=== PATIENT | male | born 1940 | race Caucasian/White ===

== ENCOUNTER 2018-03-31 19:29 | Emergency (ER) | payer MEDICARE, OTHER ==
--- NOTE | 2018-03-31 22:50 | ER Document Report ---
ED General - General Chief Complaint: Head Injury Stated Complaint: FALL/HEAD INJURY Time Seen by Provider: 03/31/18 22:49 Mode of Arrival: Medic Information source: Emergency Med Personnel Notes: 78-year-old gentleman presented today for evaluation of a fall. According to patient he fell off approximately 4 steps while climbing blocker and polisher gold wheel stand. Patient fell backwards and the stand landed on the top of him. Patient reported posterior scalp hematoma without any loss of consciousness. Patient complains of right shoulder pain, right hip pain as well as neck pain. Pain is achy, constant, worse with movement and palpation, severity of symptoms is 6 out of 10. Patient denies any nausea, vomiting, double vision, focal upper or lower extremity weakness. Patient does not take any blood thinners at present time. TRAVEL OUTSIDE OF THE [place] IN LAST 30 DAYS: No - Related Data Allergies/Adverse Reactions: No Known Allergies Allergy (Unverified 03/31/18 19:35) Past Medical History - Social History Smoking Status: Unknown if Ever Smoked Family History: None Review of Systems - Review of Systems Notes: REVIEW OF SYSTEMS: CONSTITUTIONAL: -fevers, -chills EENT: -eye pain, -difficulty swallowing, -nasal congestion CARDIOVASCULAR: -chest pain, -syncope, + dizziness RESPIRATORY: -cough, -SOB GASTROINTESTINAL: -abdominal pain, -nausea, -vomiting, -diarrhea GENITOURINARY: -dysuria, -hematuria MUSCULOSKELETAL: -back pain, + neck pain, + shoulder pain, + hip pain SKIN: -rash or skin lesions. HEMATOLOGIC: -easy bruising or bleeding. LYMPHATIC: -swollen, enlarged glands. NEUROLOGICAL: -altered mental status or loss of consciousness, +headache, - neurologic symptoms PSYCHIATRIC: -anxiety, -depression. ALL OTHER SYSTEMS REVIEWED AND NEGATIVE. Physical Exam - Vital signs Vitals: Temp Pulse Resp BP Pulse Ox 98.1 F 74 18 159/88 H 96 03/31/18 19:39 03/31/18 19:39 03/31/18 19:39 03/31/18 19:39 03/31/18 19:39 - Notes Notes: Reviewed vital signs and nursing note as charted by RN. CONSTITUTIONAL: Alert and oriented and responds appropriately to questions HEAD: Normocephalic; posterior scalp hematoma without any obvious scalp deformity EYES: PERRL; Conjunctivae clear, sclerae non-icteric ENT: normal nose; no rhinorrhea; moist mucous membranes; pharynx without lesions noted NECK: Supple without meningismus; non-tender; no cervical lymphadenopathy, no masses CARD: Regular rate and rhythm; no murmurs, no clicks, no rubs, no gallops; symmetric distal pulses RESP: Normal chest excursion without splinting or tachypnea; breath sounds clear and equal bilaterally ABD/GI: Normal bowel sounds; non-distended; soft, BACK: The back appears normal and is non-tender to palpation EXT: Right shoulder examination without any obvious deformity, mild tenderness to palpation along anterior shoulder capsule, patient has normal range of motion of the shoulder, radial pulses are strong and palpable, motor strength is 5 out of 5 in the right hand Right hip examination without any obvious deformity, patient able to range his hip, no pain with logroll, DP and PT palpable, sensation is present in all the dermatomes of the lower extremity SKIN: Normal color for age and race; warm; dry; good turgor; capillary refill < 2 seconds; no acute lesions noted NEURO: .Cranial nerves 3-12 intact. Motor strength 5/5 bilaterally. Sensation intact to touch bilaterally. No pronator drift. Finger to nose intact bilaterally PSYCH: The patient's mood and manner are appropriate. Grooming and personal hygiene are appropriate. Course - Re-evaluation Re-evalutation: Patient presented today for evaluation of a fall Patient has scalp hematoma without any loss of consciousness Given his age will obtain CT scan to rule out acute intracranial injury or possible cervical spine fracture We will obtain x-rays of his pelvis as well as right shoulder Pain control with Shirley 04/01/18 01:23 CT scans as well as x-rays without any acute intracranial injuries or cervical spine fractures Patient does not have any hip injury or shoulder fracture Discussed results of imaging with patient and family, agree with disposition home today and close PCP follow-up Follow-up with primary care physician - Vital Signs Vital signs: Temp Pulse Resp BP Pulse Ox 98.1 F 74 15 140/66 H 98 03/31/18 19:39 03/31/18 19:39 03/31/18 23:01 03/31/18 23:01 03/31/18 23:01 Discharge - Discharge Clinical Impression: Fall (on) (from) other stairs and steps, initial encounter Scalp hematoma Qualifiers: Encounter type: initial encounter Qualified Code(s): S00.03XA - Contusion of scalp, initial encounter Closed head injury without loss of consciousness Qualifiers: Encounter type: initial encounter Qualified Code(s): S09.90XA - Unspecified injury of head, initial encounter Shoulder sprain Qualifiers: Encounter type: initial encounter Shoulder sprain type: rotator cuff capsule Condition: Stable Additional Instructions: CT scans did not reveal any evidence of brain injury or neck fractures Your x-rays did not reveal any evidence of fracture of his shoulder or hip Please continue to take pain medication such as Tylenol or ibuprofen to help your symptoms Please follow-up with your primary care physician Please come back if he develops worsening headache, dizziness, weakness in your arms or legs, nausea or vomiting Referrals: DIMA VACA MD [Primary Care Provider] - Follow up as needed
[2018-03-31] MEDS ORDERED: HYDROCODONE/ACETAMINOPHEN 5-325 MG TABLET PO ONE (23:19)
--- NOTE | 2018-04-01 01:04 | RADIOLOGY REPORT (SQ) ---
EXAM DESCRIPTION: CT HEAD WITHOUT; CT CERVICAL SPINE WITHOUT COMPLETED DATE/TIME: 04/01/2018 12:12 am REASON FOR STUDY: fell off ladder COMPARISON: None. TECHNIQUE: Axial images acquired through the brain and cervical spine without intravenous contrast. Images reviewed with brain, subdural, lung, soft tissue and bone windows. Reconstructed coronal and sagittal MPR images reviewed. Images stored on PACS. All CT scanners at this facility use dose modulation, iterative reconstruction, and/or weight based d osing when appropriate to reduce radiation dose to as low as reasonably achievable (ALARA). [facility]: Dose Right [facility]: CareDose [facility]: Dose Right [facility]: Teradose 4D [facility]: [employer] RADIATION DOSE: CT Rad equipment meets quality standard of care and radiation dose reduction techniq ues were employed. CTDIvol: 53.2 mGy. DLP: 1044 mGy-cm.; CT Rad equipment meets quality standard of c are and radiation dose reduction techniques were employed. CTDIvol: 17.4 mGy. DLP: 373 mGy-cm. mGy. LIMITATIONS: None. FINDINGS: Brain Mild atrophy and small vessel disease. No hemorrhage or mass or shift. Mild posterior right scalp s oft tissue swelling. No fracture. Cervical spine No fracture or bone lesion. Multilevel spondylosis. Minimal anterolisthesis at C2-3, presumably deg enerative. Lung apices clear. IMPRESSION: 1. No acute intracranial abnormality. 2. Cervical spondylosis. TECHNICAL DOCUMENTATION: JOB ID: [id number] Quality ID # [id number]: Final reports with documentation of one or more dose reduction techniques (e.g., Au tomated exposure control, adjustment of the mA and/or kV according to patient size, use of iterative reconstruction technique) 2010 [employer]- All Rights Reserved Reading location - IP/workstation name: [email or web address]
--- NOTE | 2018-04-01 01:04 | RADIOLOGY REPORT (SQ) ---
EXAM DESCRIPTION: CT HEAD WITHOUT; CT CERVICAL SPINE WITHOUT COMPLETED DATE/TIME: 04/01/2018 12:12 am REASON FOR STUDY: fell off ladder COMPARISON: None. TECHNIQUE: Axial images acquired through the brain and cervical spine without intravenous contrast. Images reviewed with brain, subdural, lung, soft tissue and bone windows. Reconstructed coronal and sagittal MPR images reviewed. Images stored on PACS. All CT scanners at this facility use dose modulation, iterative reconstruction, and/or weight based d osing when appropriate to reduce radiation dose to as low as reasonably achievable (ALARA). [facility]: Dose Right [facility]: CareDose [facility]: Dose Right [facility]: Teradose 4D [facility]: [employer] RADIATION DOSE: CT Rad equipment meets quality standard of care and radiation dose reduction techniq ues were employed. CTDIvol: 53.2 mGy. DLP: 1044 mGy-cm.; CT Rad equipment meets quality standard of c are and radiation dose reduction techniques were employed. CTDIvol: 17.4 mGy. DLP: 373 mGy-cm. mGy. LIMITATIONS: None. FINDINGS: Brain Mild atrophy and small vessel disease. No hemorrhage or mass or shift. Mild posterior right scalp s oft tissue swelling. No fracture. Cervical spine No fracture or bone lesion. Multilevel spondylosis. Minimal anterolisthesis at C2-3, presumably deg enerative. Lung apices clear. IMPRESSION: 1. No acute intracranial abnormality. 2. Cervical spondylosis. TECHNICAL DOCUMENTATION: JOB ID: [id number] Quality ID # [id number]: Final reports with documentation of one or more dose reduction techniques (e.g., Au tomated exposure control, adjustment of the mA and/or kV according to patient size, use of iterative reconstruction technique) 2010 [employer]- All Rights Reserved Reading location - IP/workstation name: [email or web address] DEVELOPMENT [email or web address]
--- NOTE | 2018-04-01 01:19 | RADIOLOGY REPORT (SQ) ---
EXAM DESCRIPTION: XR PELVIS 1-2 VIEWS. CLINICAL HISTORY: 78 years, Male, pain COMPARISON: None. NUMBER OF VIEWS: One TECHNIQUE: Single frontal view of the pelvis. LIMITATIONS: None. FINDINGS: Degenerative changes of the lower lumbar spine and bilateral hips with mild femoral acetabular joint space narrowing, subchondral sclerosis and osteophyte formation. No fracture or dislocation. Pelvic phleboliths noted. Vascular calcifications present throughout the soft tissues. IMPRESSION: Degenerative change without acute radiographic abnormality. 2011 [employer]- All Rights Reserved
--- NOTE | 2018-04-01 01:20 | RADIOLOGY REPORT (SQ) ---
EXAM DESCRIPTION: XR SHOULDER 2 OR MORE VIEWS CLINICAL HISTORY: 78 years, Male, pain COMPARISON: None. NUMBER OF VIEWS: Three TECHNIQUE: Three views of the RIGHT shoulder were obtained in AP internal, external and transscapular projection. LIMITATIONS: None. FINDINGS: No fracture or dislocation. Narrowing of the subacromial joint space, finding which can be seen with chronic rotator cuff injury. Degenerative change of the acromioclavicular and glenohumeral joint. The soft tissues appear to be within normal limits. IMPRESSION: Degenerative change without acute radiographic abnormality. 2011 [employer]- All Rights Reserved
[2018-04-01 02:10] VITALS: BP 155/75
== END 2018-04-01 01:30 | disposition home or self-care (01) ==
LOC: ER 19:29
DX: S43.429A Sprain of unspecified rotator cuff capsule, initial encounter (principal); S00.03XA Contusion of scalp, initial encounter; M25.511 Pain in right shoulder; M54.2 Cervicalgia; M25.551 Pain in right hip; W11.XXXA Fall on and from ladder, initial encounter; Y93.39 Activity, other involving climbing, rappelling and jumping off; R42 Dizziness and giddiness; R51 Headache
CPT/HCPCS: 99284; 72170; 73030; 70450; 72125; A9270

== ENCOUNTER → 2018-05-13 | Outpatient (CLI) | payer MEDICARE, OTHER ==
--- NOTE | 2018-05-13 13:34 | RADIOLOGY REPORT (SQ) ---
EXAM DESCRIPTION: NM WHOLE BODY BONE SCAN COMPLETED DATE/TIME: 05/13/2018 12:41 pm REASON FOR STUDY: PROSTATE CA (C61 C61 MALIGNANT NEOPLASM OF PROSTATE COMPARISON: CT abdomen pelvis 05/13/2018 RADIONUCLIDE AND DOSE: 22 millicuries Tc99m HDP. The route of agent administration: Intravenous. ADDITIONAL DRUGS AND DOSES: None. TECHNIQUE: Routine delayed images at 3 hours post radionuclide injection acquired of the bony skelet on including anterior and posterior whole-body projections and additional focused images as needed. LIMITATIONS: None. FINDINGS: Increased uptake along the right lateral 7th and 8th ribs, correlates with healing rib fra ctures on CT chest 05/13/2018. Increased uptake at the right and left 1st carpometacarpal joint, mid feet, and shoulders in characte ristic locations for osteoarthritis. Post bilateral total knee replacement IMPRESSION: No bone scan evidence of metastatic disease given history of prostate cancer COMMENT: Quality measure 147: Current bone scan is compared with any available plain radiographs, p rior bone scans, and CT/MRI. TECHNICAL DOCUMENTATION: JOB ID: [id number] [employer]- All Rights Reserved Reading location - IP/workstation name: [email or web address]
--- NOTE | 2018-05-13 17:28 | RADIOLOGY REPORT (SQ) ---
EXAM DESCRIPTION: CT ABD/PELVIS WITH IV ONLY COMPLETED DATE/TIME: 05/13/2018 9:48 am REASON FOR STUDY: PROSTATE CA (C61) C61 MALIGNANT NEOPLASM OF PROSTATE COMPARISON: None. TECHNIQUE: CT scan of the abdomen and pelvis performed using helical scanning technique with dynamic intravenous contrast injection. No oral contrast. Images reviewed with lung, soft tissue, and bone windows. Reconstructed coronal and sagittal MPR images reviewed. Delayed images for evaluation of the urinary system also acquired. All images stored on PACS. All CT scanners at this facility use dose modulation, iterative reconstruction, and/or weight based d osing when appropriate to reduce radiation dose to as low as reasonably achievable (ALARA). [facility]: Dose Right [facility]: CareDose [facility]: Dose Right [facility]: Teradose 4D [facility]: [employer] OPS CONTRAST TYPE AND DOSE: contrast/concentration: Isovue 370.00 mg/ml; Total Contrast Delivered: 78.0 ml; Total Saline Delivered: 67.0 ml RENAL FUNCTION: Creatinine 1.2 RADIATION DOSE: CT Rad equipment meets quality standard of care and radiation dose reduction techniq ues were employed. CTDIvol: 7.1 - 8.0 mGy. DLP: 792 mGy-cm.. LIMITATIONS: None. FINDINGS: LOWER CHEST: Obstructive lung disease at the bases, heavily calcified mitral annulus. No pericardial effusion. No cardiomegaly. LIVER: Normal size. No masses. No dilated ducts. SPLEEN: Normal size. No focal lesions. PANCREAS: No masses. No significant calcifications. No adjacent inflammation or peripancreatic fluid collections. Pancreatic duct not dilated. GALLBLADDER: No identified stones by CT criteria. No inflammatory changes to suggest cholecystitis. ADRENAL GLANDS: No significant masses or asymmetry. RIGHT KIDNEY AND URETER: No solid masses. 3 cm right upper pole renal cortical cyst. No significant calcifications. No hydronephrosis or hydroureter. LEFT KIDNEY AND URETER: No solid masses. No significant calcifications. No hydronephrosis or hydr oureter. AORTA AND VESSELS: No aneurysm. No abdominal aortic dissection. Greater than 50% narrowing of the pr oximal celiac artery, SMA, and bilateral renal arteries. RETROPERITONEUM: No retroperitoneal adenopathy, hemorrhage or masses. BOWEL AND PERITONEAL CAVITY: No CT evidence of bowel obstruction. No free intraperitoneal air or flu id. Few colonic diverticuli without CT signs of acute diverticulitis APPENDIX: Normal. PELVIS: Normal size prostate with decreased contrast enhancement along the rightward half, suspect ri ght-sided prostate tumor. No pelvic adenopathy. Bladder, rectum unremarkable. ABDOMINAL WALL: No masses. No hernias. BONES: No sclerotic bony metastatic lesions. Diffuse multilevel degenerative disc changes lumbar spi ne OTHER: No other significant finding. IMPRESSION: No CT evidence of metastatic disease over the abdomen or pelvis given history of prostat e cancer. TECHNICAL DOCUMENTATION: JOB ID: [id number] Quality ID # [id number]: Final reports with documentation of one or more dose reduction techniques (e.g., Au tomated exposure control, adjustment of the mA and/or kV according to patient size, use of iterative reconstruction technique) 2010 [employer]- All Rights Reserved Reading location - IP/workstation name: [email or web address]
== END ==
LOC: RAD 08:11
PROVIDERS: ATTEND Urology
DX: C61 Malignant neoplasm of prostate (principal)
CPT/HCPCS: 82565; 78306; 74177; A9561; Q9969

== ENCOUNTER 2018-10-13 09:32 | Inpatient (IN) | payer MEDICARE, OTHER ==
[2018-10-13] MEDS ORDERED: RINGERS SOLUTION,LACTATED 1,000 ML IV ONE (10:01)
[2018-10-13] MEDS ORDERED: NORMAL SALINE 1000 ML 1,000 ML IV ONE (10:52)
[2018-10-13 11:22] LABS: VENOUS BLOOD BASE EXCESS 1.1 mmol/L; VENOUS BLOOD HCO3 26.7 mmol/L (20-32); VENOUS BLOOD PH 7.38 (7.30-7.42)
[2018-10-13 11:24] LABS: APPEARANCE,URINE CLEAR; BILIRUBIN,URINE NEGATIVE (NEGATIVE); COLOR,URINE STRAW; GLUCOSE, URINE >=500 mg/dL (NEGATIVE); KETONES,URINE NEGATIVE (NEGATIVE); LEUKOCYTE ESTERASE,URINE NEGATIVE (NEGATIVE); NITRITE,URINE NEGATIVE (NEGATIVE); PROTEIN,URINE NEGATIVE (NEGATIVE); URINE SPECIFIC GRAVITY 1.026; UROBILINOGEN,URINE NEGATIVE mg/dL (<2.0)
[2018-10-13 11:25] LABS: ABSOLUTE BASOPHILS # (AUTO) 0.1 10^3/uL (0.0-0.2); ABSOLUTE EOSINOPHILS # (AUTO) 0.3 10^3/uL (0.0-0.6); ABSOLUTE LYMPHOCYTES (AUTO) 1.2 10^3/uL (0.5-4.7); ABSOLUTE MONOCYTES (AUTO) 0.7 10^3/uL (0.1-1.4); BASOPHILS % (AUTO) 1.2 % (0-2); EOSINOPHILS % (AUTO) 4.3 % (0-6); HEMATOCRIT 35.3 % (37.9-51.0); LYMPHOCYTES % (AUTO) 18.9 % (13-45); MEAN CORPUSCULAR HEMOGLOBIN 33.4 pg (27.0-33.4); MEAN CORPUSCULAR VOLUME 98 fl (80-97); PLATELET COUNT 188 10^3/uL (150-450); RED CELL DISTRIBUTION WIDTH 14.1 % (11.5-14.0); SEGMENTED NEUTROPHILS % (AUTO) 64.6 % (42-78); TOTAL CELLS COUNTED % (AUTO) 100 %; WHITE BLOOD COUNT 6.3 10^3/uL (4.0-10.5)
[2018-10-13 11:35] LABS: ALANINE AMINOTRANSFERASE 21 U/L (21-72); ALBUMIN 4.5 g/dL (3.5-5.0); ALKALINE PHOSPHATASE 158 U/L (38-126); ANION GAP 15 (5-19); ASPARTATE AMINO TRANSFERASE 35 U/L (17-59); BILIRUBIN,DIRECT 0.4 mg/dL (0.0-0.4); BILIRUBIN,TOTAL 1.1 mg/dL (0.2-1.3); BLOOD UREA NITROGEN 39 mg/dL (7-20); CARBON DIOXIDE 27 mmol/L (22-30); CHLORIDE 87 mmol/L (98-107); POTASSIUM 5.8 mmol/L (3.6-5.0); SODIUM 128.6 mmol/L (137-145); TOTAL PROTEIN 8.1 g/dL (6.3-8.2)
[2018-10-13 11:47] LABS: GLUCOSE 762 mg/dL (75-110)
[2018-10-13] MEDS ORDERED: NORMAL SALINE 100 ML with INSULIN REGULAR, HUMAN 100 UNIT IV PRN ×2 (12:01)
--- NOTE | 2018-10-13 12:06 | ER Document Report ---
ED Blood Sugar Problem - General Chief Complaint: High Blood Sugar Stated Complaint: ABNORMAL LABS Time Seen by Provider: 10/13/18 10:00 TRAVEL OUTSIDE OF THE [place] IN LAST 30 DAYS: No - HPI Notes: Patient is a 78-year-old male that presents to the emergency department for chief complaint of hyperglycemia. Patient states that he has likely been forgetting his insulin for the last few days. He states he usually takes it once a day in the morning. He is not sure why he is forgetting it but states since receiving his last chemo injection 1 week ago he has felt forgetful. He denies any headache, vision changes, numbness or weakness. He does report intermittent nausea with no vomiting. He denies any chest pain and shortness of breath. He denies history of DKA in the past. Past Medical History: Diabetes, prostate cancer Past Surgical History: Viewed in chart Social History: His alcohol and tobacco use Family History: Reviewed and noncontributory for presenting illness Allergies: Reviewed, see documented allergy list. REVIEW OF SYSTEMS: CONSTITUTIONAL : Forgetfulness No fever No chills No diaphoresis No recent illness EENT: No vision changes No congestion No sore throat CARDIOVASCULAR: No chest pain No palpitations RESPIRATORY: No shortness of breath No cough No difficulty breathing GASTROINTESTINAL: No abdominal pain nausea No vomiting No diarrhea GENITOURINARY: No dysuria No hematuria No difficulty urinating MUSCULOSKELETAL: No back pain No leg pain No arm pain SKIN: No rashes No lesions LYMPHATIC: No swollen, enlarged glands. NEUROLOGICAL: No lightheadedness No headache No weakness No paresthesias PSYCHIATRIC: No anxiety No depression PHYSICAL EXAMINATION: Vital signs reviewed, nursing noted reviewed. GENERAL: Well-appearing, well-nourished and in no acute distress. HEAD: Atraumatic, normocephalic. EYES: Eyes appear normal, extraocular movements intact, sclera anicteric, conjunctiva are normal. ENT: nares patent, oropharynx clear without exudates. Dry mucous membranes. NECK: Normal range of motion, supple without lymphadenopathy LUNGS: Breath sounds clear to auscultation bilaterally and equal. No wheezes rales or rhonchi. HEART: Regular rate and rhythm without murmurs ABDOMEN: Soft, nontender, normoactive bowel sounds. No rebound, guarding, or rigidity. No masses appreciated. EXTREMITIES: Nontender, good range of motion, no pitting or edema. NEUROLOGICAL: No focal neurological deficits. Moves all extremities spontaneously Motor and sensory grossly intact on exam. PSYCH: Normal mood, normal affect. SKIN: Warm, Dry, normal turgor, no rashes or lesions noted on exposed skin - Related Data Allergies/Adverse Reactions: No Known Allergies Allergy (Verified 10/13/18 09:34) Past Medical History - Social History Smoking Status: Never Smoker Chew tobacco use (# tins/day): No Frequency of alcohol use: Occasional Drug Abuse: None Family History: None Patient has suicidal ideation: No Patient has homicidal ideation: No Renal/ Medical History: Denies: Hx Peritoneal Dialysis Physical Exam - Vital signs Vitals: Temp Pulse Resp BP Pulse Ox 97.6 F 69 16 119/58 L 100 10/13/18 09:39 10/13/18 09:39 10/13/18 09:39 10/13/18 09:39 10/13/18 09:39 Course - Re-evaluation Re-evalutation: 10/13/18 12:04 Vitals reviewed. Nursing notes reviewed. Patient is hyperglycemic with a glucose of 762. He was started on IV hydration. His potassium level is elevated which will likely improve with fluids. Patient is also hyponatremic secondary to his hyperglycemia. He will be admitted to the ICU for DKA. He was started on insulin infusion in the emergency room. Case discussed with Dr. Vaca who is accepted admission. Patient in agreement with this plan and stable at time of admission. Laboratory 10/13/18 10/13/18 10/13/18 10:15 10:38 10:38 WBC 6.3 RBC 3.60 L Hgb 12.0 L Hct 35.3 L MCV 98 H MCH 33.4 MCHC 34.0 RDW 14.1 H Plt Count 188 Seg Neutrophils % 64.6 Lymphocytes % 18.9 Monocytes % 11.0 Eosinophils % 4.3 Basophils % 1.2 Absolute Neutrophils 4.0 Absolute Lymphocytes 1.2 Absolute Monocytes 0.7 Absolute Eosinophils 0.3 Absolute Basophils 0.1 VBG pH VBG pCO2 VBG HCO3 VBG Base Excess Sodium 128.6 L Potassium 5.8 H Chloride 87 L Carbon Dioxide 27 Anion Gap 15 BUN 39 H Creatinine 1.28 H Est GFR ( Amer) > 60 Est GFR (Non-Af Amer) 55 L Glucose 762 H* Calcium 10.0 Total Bilirubin 1.1 Direct Bilirubin 0.4 Neonat Total Bilirubin Not Reportable Neonat Direct Bilirubin Not Reportable Neonat Indirect Bili Not Reportable AST 35 ALT 21 Alkaline Phosphatase 158 H Total Protein 8.1 Albumin 4.5 Urine Color STRAW Urine Appearance CLEAR Urine pH 5.0 Ur Specific [place] 1.026 Urine Protein NEGATIVE Urine Glucose (UA) >=500 H Urine Ketones NEGATIVE Urine Blood NEGATIVE Urine Nitrite NEGATIVE Urine Bilirubin NEGATIVE Urine Urobilinogen NEGATIVE Ur Leukocyte Esterase NEGATIVE Urine WBC (Auto) 0 Squamous Epi Cells Auto <1 Urine Mucus (Auto) RARE Urine Ascorbic Acid NEGATIVE 10/13/18 10:38 WBC RBC Hgb Hct MCV MCH MCHC RDW Plt Count Seg Neutrophils % Lymphocytes % Monocytes % Eosinophils % Basophils % Absolute Neutrophils Absolute Lymphocytes Absolute Monocytes Absolute Eosinophils Absolute Basophils VBG pH 7.38 VBG pCO2 46.0 VBG HCO3 26.7 VBG Base Excess 1.1 Sodium Potassium Chloride Carbon Dioxide Anion Gap BUN Creatinine Est GFR ( Amer) Est GFR (Non-Af Amer) Glucose Calcium Total Bilirubin Direct Bilirubin Neonat Total Bilirubin Neonat Direct Bilirubin Neonat Indirect Bili AST ALT Alkaline Phosphatase Total Protein Albumin Urine Color Urine Appearance Urine pH Ur Specific [place] Urine Protein Urine Glucose (UA) Urine Ketones Urine Blood Urine Nitrite Urine Bilirubin Urine Urobilinogen Ur Leukocyte Esterase Urine WBC (Auto) Squamous Epi Cells Auto Urine Mucus (Auto) Urine Ascorbic Acid - Vital Signs Vital signs: Temp Pulse Resp BP Pulse Ox 97.6 F 69 16 119/58 L 100 10/13/18 09:39 10/13/18 09:39 10/13/18 09:52 10/13/18 09:39 10/13/18 09:39 - Laboratory Result Diagrams: 10/13/18 10:38 10/13/18 10:38 Laboratory results interpreted by me: 10/13/18 10/13/18 10/13/18 10:15 10:38 10:38 RBC 3.60 L Hgb 12.0 L Hct 35.3 L MCV 98 H RDW 14.1 H Sodium 128.6 L Potassium 5.8 H Chloride 87 L BUN 39 H Creatinine 1.28 H Est GFR (Non-Af Amer) 55 L Glucose 762 H* Alkaline Phosphatase 158 H Urine Glucose (UA) >=500 H Critical Care Note - Critical Care Note Total time excluding time spent on procedures (mins): 35 Comments: Metabolic derangements, DKA, potential for hemodynamic decompensation Discharge - Discharge Clinical Impression: DKA (diabetic ketoacidoses) Qualifiers: Diabetes mellitus type: type 1 Diabetes mellitus complication detail: without coma Qualified Code(s): E10.10 - Type 1 diabetes mellitus with ketoacidosis without coma Condition: Stable Disposition: ADMITTED INPATIENT Admitting Provider: [facility] Admitted: ICU Referrals: DIMA VACA MD [Primary Care Provider] - Follow up as needed
[2018-10-13] MEDS ORDERED: INSULIN REG, HUMAN 100 UNIT/ML 3 ML VIAL (PYX) ONE (12:55)
[2018-10-13] MEDS ORDERED: DEXTROSE 40% GEL 15 GM TUBE PO PRN (14:59)
[2018-10-13] MEDS ORDERED: DEXTROSE 40% GEL 15 GM TUBE X 2 PO PRN (14:59)
[2018-10-13] MEDS ORDERED: INSULIN, REGULAR 100 UNIT/100 ML NORMAL SALINE IV PRN ×2 (14:59)
[2018-10-13] MEDS ORDERED: GLUCAGON,HUMAN RECOMB 1 MG INJ IM PRN (14:59)
[2018-10-13] MEDS ORDERED: DEXTROSE 50%-WATER SYRINGE 25 GM/50 ML DOSE IV PRN (14:59)
[2018-10-13] MEDS ORDERED: DEXTROSE 50%-WATER SYRINGE 12.5 GM/25 ML DOSE IV PRN (14:59)
[2018-10-13] MEDS ORDERED: DEXTROSE 5%-NORMAL SALINE 1,000 ML IV PRN (19:56)
--- NOTE | 2018-10-13 20:27 | PDOC H&P ---
History of Present Illness Admission Date/PCP: 10/13/18 12:32 DIMA NOLA Patient complains of: Elevated blood glucose History of Present Illness: TOÑO FUENTES is a 78 year old male patient known to my practice who's blood glucose was elevated at over 700 mg/dL and attempt to contact him was unsuccessful since 10/10/18. His spouse eventually called me this morning upon reviewing message on her telephone and reported that his accuchek machine was reading high. He was subsequently directed to the Ed for further evaluation and management. His initial evaluation in the Ed revealed blood glucose of 762 mg/ dL. He was stated on IV fluid and insulin infusion therapy. Patient reported noncompliance with his insulin administration at home due to forgetfulness in recent time, particularly since his last dose of chemotherapy. He denied any fever or chills. No nausea, vomiting or diarrhea. he denied any genitourinary symptoms to suggest ongoing infection. No headache or dizziness. His morbidities include hypertension Diabetes mellitus type 2, Hyperlipidemia, GERD , Microcytic anemia and recently diagnosed prostate cancer s/p radiation therapy and currently on Bicalutamide (Casodex). He was advised admission for further evaluation and management for diabetic ketoacidosis without coma. Past Medical History Cardiac Medical History: Reports: Hyperlipidema, Hypertension Pulmonary Medical History: Reports: None Endocrine Medical History: Reports: Diabetes Mellitus Type 2 Malignancy Medical History: Reports: Other - Prostate cancer GI Medical History: Reports: Gastroesophageal Reflux Disease Hematology: Reports: Anemia Past Surgical History Past Surgical History: Reports: Knee Replacement Social History Smoking Status: Former Smoker Number of Years Smokin Frequency of Alcohol Use: Rare Hx Recreational Drug Use: No Drugs: None - Advance Directive Resuscitation Status: Full Code Family History Family History: None Parental Family History Reviewed: Yes Children Family History Reviewed: Yes Sibling(s) Family History Reviewed.: Yes Medication/Allergy Home Medications: Amlodipine Besylate [Norvasc 5 mg Tablet] 5 mg PO DAILY 10/13/18 Aspirin [Ecotrin 81 mg EC Tablet] 81 mg PO DAILY 10/13/18 Atorvastatin Calcium [Lipitor 40 mg Tablet] 40 mg PO QHS 10/13/18 Bicalutamide [Casodex 50 Mg Tablet] 50 mg PO DAILY 10/13/18 Insulin Glargine,Hum.rec.anlog [Lantus Insulin Inj 300 Unit/3 ml Pen] 30 unit SUBCUT QHS 12/03/18 Ketoconazole [Nizoral 2% Shampoo 120 Ml Bottle] 1 applic TP ASDIR PRN 10/13/18 Lisinopril [Prinivil] 20 mg PO DAILY 10/13/18 Metoprolol Tartrate [Lopressor 25 mg Tablet] 25 mg PO Q12 10/13/18 [place]-3 Acid Ethyl Esters [Lovaza 1 gm Capsule] 1 gm PO DAILY 10/13/18 Prevnar 13 0.5 ml IM .RECEIVED 09/03/18 10/13/18 Sitagliptin Phos/Metformin HCl [Janumet Xr 50-1,000 mg Tablet] 1 each PO BID 01/26 Allergies/Adverse Reactions: No Known Allergies Allergy (Verified 10/13/18 09:34) Review of Systems Constitutional: ABSENT: chills, fever(s), headache(s), weight gain, weight loss Eyes: PRESENT: visual disturbances - corrected with glasses Ears: ABSENT: hearing changes Nose, Mouth, and Throat: ABSENT: as per HPI, headache(s), mouth pain, sore throat, vertigo, other Cardiovascular: ABSENT: chest pain, dyspnea on exertion, edema, orthropnea, palpitations Respiratory: ABSENT: cough, hemoptysis Gastrointestinal: ABSENT: abdominal pain, constipation, diarrhea, hematemesis, hematochezia, nausea, vomiting Genitourinary: ABSENT: dysuria, hematuria Musculoskeletal: ABSENT: joint swelling Integumentary: ABSENT: rash, wounds Neurological: PRESENT: memory loss. ABSENT: abnormal gait, abnormal speech, confusion, dizziness, focal weakness, syncope Psychiatric: ABSENT: anxiety, depression, homidical ideation, suicidal ideation Endocrine: ABSENT: cold intolerance, heat intolerance, polydipsia, polyuria Hematologic/Lymphatic: ABSENT: easy bleeding, easy bruising, lymphadenopathy Physical Exam Vital Signs: Temp Pulse Resp BP Pulse Ox 98.1 F 64 17 110/54 L 97 10/13/18 18:30 10/13/18 12:31 10/13/18 17:01 10/13/18 18:33 10/13/18 18:32 General appearance: PRESENT: no acute distress, well-developed, well-nourished Head exam: PRESENT: atraumatic, normocephalic Eye exam: PRESENT: conjunctiva pink, EOMI, PERRLA. ABSENT: scleral icterus Ear exam: PRESENT: normal external ear exam Mouth exam: PRESENT: moist - fairly Neck exam: PRESENT: full ROM. ABSENT: carotid bruit, JVD, lymphadenopathy, thyromegaly Respiratory exam: PRESENT: clear to auscultation adarsh Cardiovascular exam: PRESENT: RRR. ABSENT: diastolic murmur, rubs, systolic murmur Pulses: PRESENT: normal dorsalis pedis pul, +2 pedal pulses bilateral Vascular exam: PRESENT: normal capillary refill. ABSENT: pallor Rectal exam: PRESENT: deferred Extremities exam: ABSENT: pedal edema Musculoskeletal exam: PRESENT: ambulatory, normal inspection Neurological exam: PRESENT: alert, awake, oriented to person, oriented to place , oriented to time, oriented to situation, CN II-XII grossly intact. ABSENT: motor sensory deficit Psychiatric exam: PRESENT: appropriate affect, normal mood. ABSENT: homicidal ideation, suicidal ideation Skin exam: PRESENT: dry, intact, warm. ABSENT: cyanosis, rash Results Laboratory Results: I reviewed his lab results on [employer] and form significant aspect of my medical decision making. Assessment & Plan - Diagnosis (1) DKA (diabetic ketoacidoses) Qualifiers: Diabetes mellitus type: type 2 Diabetes mellitus complication detail: without coma Qualified Code(s): E11.10 - Type 2 diabetes mellitus with ketoacidosis without coma Is this a current diagnosis for this admission?: Yes Plan: Continue IV fluid support, IN Insulin infusion with dosage adjustment, and electrolyte replacement as indicated. (2) Diabetes mellitus type 2 in nonobese Is this a current diagnosis for this admission?: Yes Plan: Allow oral intake with diabetic diet level 3. Resume his home Lantus with sliding scale coverage as his hyperglycemia improves. (3) Hyperkalemia Is this a current diagnosis for this admission?: Yes Plan: Probably due to his hyperglycemic state. This may improve with treatment of her DKA status. (4) Hyponatremia Is this a current diagnosis for this admission?: Yes Plan: Probably due to his hyperglycemic and electrolyte derangement state. This may improve with treatment of her DKA status. (5) HTN (hypertension) Qualifiers: Hypertension type: essential hypertension Qualified Code(s): I10 - Essential (primary) hypertension Is this a current diagnosis for this admission?: Yes Plan: Continue on preadmission medication management. (6) HLD (hyperlipidemia) Qualifiers: Hyperlipidemia type: unspecified Qualified Code(s): E78.5 - Hyperlipidemia , unspecified Is this a current diagnosis for this admission?: Yes Plan: Continue on preadmission medication management. (7) GERD (gastroesophageal reflux disease) Qualifiers: Esophagitis presence: without esophagitis Qualified Code(s): K21.9 - Gastro -esophageal reflux disease without esophagitis Is this a current diagnosis for this admission?: Yes Plan: Continue on preadmission medication management. (8) Primary prostate cancer Is this a current diagnosis for this admission?: Yes Plan: Continue on preadmission medication management. - Time Time Spent: 50 to 70 Minutes Medications reviewed and adjusted accordingly: Yes Anticipated discharge: Home with Homehealth Within: Other - Inpatient Certification Based on my medical assessment, after consideration of the patient's comorbidities, presenting symptoms, or acuity I expect that the services needed warrant INPATIENT care.: Yes I certify that my determination is in accordance with my understanding of Medicare's requirements for reasonable and necessary INPATIENT services [42 CFR 412.3e].: Yes Medical Necessity: Need Close Monitoring Due to Risk of Patient Decompensation, Need For IV Fluids, Need For Continuous Telemetry Monitoring, Risk of Complication if Not Cared For in Hospital Post Hospital Care: D/C [employer] Intern Documentation - Plan Summary Plan Summary: See admitting attedning physician orders as outlined by above care plan. I discussed case with patient and spouse and they are in agreement with care plan.
[2018-10-13 21:06] LABS: ANION GAP 13 (5-19); BLOOD UREA NITROGEN 30 mg/dL (7-20); CALCIUM 9.6 mg/dL (8.4-10.2); CARBON DIOXIDE 24 mmol/L (22-30); CHLORIDE 101 mmol/L (98-107); GLUCOSE 130 mg/dL (75-110); SODIUM 137.8 mmol/L (137-145)
[2018-10-13] MEDS ORDERED: INSULIN GLARGINE,HUM.REC.ANLOG 300 UNIT/3 ML INSULN.PEN SUBCUT SCH (22:00)
[2018-10-13] MEDS: ATORVASTATIN CALCIUM 40 MG TABLET PO SCH (22:51)
[2018-10-13] MEDS: METOPROLOL TARTRATE 25 MG TABLET PO SCH (22:59)
[2018-10-14] MEDS: LANSOPRAZOLE 30 MG TAB.RAP.DR PO SCH (05:53)
[2018-10-14 07:08] LABS: ALANINE AMINOTRANSFERASE 21 U/L (21-72); ALBUMIN 3.3 g/dL (3.5-5.0); ALKALINE PHOSPHATASE 72 U/L (38-126); ANION GAP 12 (5-19); ASPARTATE AMINO TRANSFERASE 27 U/L (17-59); BILIRUBIN,DIRECT 0.2 mg/dL (0.0-0.4); BILIRUBIN,TOTAL 0.5 mg/dL (0.2-1.3); BLOOD UREA NITROGEN 25 mg/dL (7-20); CARBON DIOXIDE 23 mmol/L (22-30); CHLORIDE 104 mmol/L (98-107); CHOLESTEROL 156.35 mg/dL (0-200); GLUCOSE 113 mg/dL (75-110); SODIUM 138.6 mmol/L (137-145); TOTAL PROTEIN 6.4 g/dL (6.3-8.2); TRIGLYCERIDES 274 mg/dL (<150)
[2018-10-14 07:18] LABS: DIRECT LDL 86 mg/dL (<100)
[2018-10-14 07:19] LABS: VLDL CHOLESTEROL 54.8 mg/dL (10-31)
[2018-10-14] MEDS ORDERED: MAGNESIUM SULFATE/D5W 1 GM/100 ML RTUPB IV ONE (07:47)
[2018-10-14 08:35] LABS: ABSOLUTE NEUT (AUTO) 3.4 10^3/uL (1.7-8.2); BASOPHILS % (AUTO) 1.4 % (0-2); EOSINOPHILS % (AUTO) 7.3 % (0-6); HEMATOCRIT 33.4 % (37.9-51.0); HEMOGLOBIN 11.9 g/dL (13.5-17.0); LYMPHOCYTES % (AUTO) 23.4 % (13-45); MEAN CORPUSCULAR HEMOGLOBIN 33.6 pg (27.0-33.4); MEAN CORPUSCULAR HGB CONC 35.5 g/dL (32.0-36.0); MEAN CORPUSCULAR VOLUME 95 fl (80-97); MONOCYTES % (AUTO) 9.4 % (3-13); PLATELET COUNT 186 10^3/uL (150-450); RED BLOOD COUNT 3.54 10^6/uL (4.35-5.55); RED CELL DISTRIBUTION WIDTH 14.6 % (11.5-14.0); SEGMENTED NEUTROPHILS % (AUTO) 58.5 % (42-78); TOTAL CELLS COUNTED % (AUTO) 100 %; WHITE BLOOD COUNT 5.8 10^3/uL (4.0-10.5)
[2018-10-14 08:36] LABS: ABSOLUTE BASOPHILS # (AUTO) 0.1 10^3/uL (0.0-0.2); ABSOLUTE EOSINOPHILS # (AUTO) 0.4 10^3/uL (0.0-0.6); ABSOLUTE LYMPHOCYTES (AUTO) 1.3 10^3/uL (0.5-4.7); ABSOLUTE MONOCYTES (AUTO) 0.5 10^3/uL (0.1-1.4)
[2018-10-14] MEDS: NORMAL SALINE 1000 ML 1,000 ML IV PRN (08:40)
[2018-10-14] MEDS: ASPIRIN 81 MG TABLET, ENT COATED PO SCH (09:59)
[2018-10-14] MEDS: OMEGA-3 ACID ETHYL ESTERS 1 GM CAPSULE PO SCH (10:00)
[2018-10-14] MEDS ORDERED: (PENDING PHARMACY ID) (Lisinopril [Prinivil] 20 MG) PO SCH (10:00)
[2018-10-14] MEDS: METOPROLOL TARTRATE 25 MG TABLET PO SCH ×2 (10:00→22:17)
[2018-10-14] MEDS: LISINOPRIL 10 MG TABLET PO SCH (10:01)
[2018-10-14] MEDS: AMLODIPINE BESYLATE 5 MG TABLET PO SCH (10:01)
[2018-10-14] MEDS: MAGNESIUM OXIDE 400 MG TABLET PO SCH (10:02)
[2018-10-14] MEDS: ENOXAPARIN SODIUM INJ 40 MG/0.4 ML DISP.SYRIN SUBCUT SCH (10:03)
[2018-10-14] MEDS: INSULIN LISPRO 100 UNIT/ML 3 ML VIAL SUBCUT PRN ×2 (14:32→17:28)
[2018-10-14] MEDS: BICALUTAMIDE 50 MG TABLET PO SCH (17:31)
--- NOTE | 2018-10-14 18:37 | PDOC PROGRESS REPORT ---
Subjective Progress Note for:: 10/14/18 Subjective:: No chest pain or difficulty with breathing. Accuchek revealed improvement in his hyperglycemia. He denied any polyuria, polydipsia or polyphagia. Admitted to consuming about 1/3 of his dinner so far tonight. Dislike served burger. Reason For Visit: HYPERKALEMIA Physical Exam Vital Signs: Temp Pulse Resp BP Pulse Ox 97.5 F 78 16 135/69 H 100 10/14/18 16:32 10/14/18 16:32 10/14/18 16:32 10/14/18 16:32 10/14/18 16:32 Intake & Output 10/13/18 10/14/18 10/15/18 06:59 06:59 06:59 Intake Total 1625 Balance 1625 Weight 68.8 kg General appearance: PRESENT: no acute distress, well-developed, well-nourished Head exam: PRESENT: atraumatic, normocephalic Eye exam: PRESENT: conjunctiva pink, EOMI, PERRLA. ABSENT: scleral icterus Ear exam: PRESENT: normal external ear exam Mouth exam: PRESENT: moist Cardiovascular exam: PRESENT: RRR. ABSENT: diastolic murmur, rubs, systolic murmur Vascular exam: PRESENT: normal capillary refill. ABSENT: pallor GI/Abdominal exam: PRESENT: normal bowel sounds, soft. ABSENT: distended, guarding, mass, organolmegaly, rebound, tenderness Extremities exam: ABSENT: pedal edema Musculoskeletal exam: PRESENT: ambulatory Neurological exam: PRESENT: alert, awake, oriented to person, oriented to place , oriented to time, oriented to situation, CN II-XII grossly intact. ABSENT: motor sensory deficit Psychiatric exam: PRESENT: appropriate affect, normal mood. ABSENT: homicidal ideation, suicidal ideation Skin exam: PRESENT: dry, intact, warm. ABSENT: cyanosis, rash Results Laboratory Results: 10/14/18 07:41 10/14/18 05:35 10/13/18 10/14/18 10/14/18 20:40 05:35 05:35 WBC Cancelled RBC Cancelled Hgb Cancelled Hct Cancelled MCV Cancelled MCH Cancelled MCHC Cancelled RDW Cancelled Plt Count Cancelled Seg Neutrophils % Cancelled Lymphocytes % Cancelled Monocytes % Cancelled Eosinophils % Cancelled Basophils % Cancelled Absolute Neutrophils Cancelled Absolute Lymphocytes Cancelled Absolute Monocytes Cancelled Absolute Eosinophils Cancelled Absolute Basophils Cancelled Sodium 137.8 138.6 Potassium 4.0 D 4.0 Chloride 101 104 Carbon Dioxide 24 23 Anion Gap 13 12 BUN 30 H 25 H Creatinine 1.09 1.01 Est GFR ( Amer) > 60 > 60 Est GFR (Non-Af Amer) > 60 > 60 Glucose 130 H 113 H Calcium 9.6 9.0 Magnesium 1.4 L Total Bilirubin 0.5 AST 27 ALT 21 Alkaline Phosphatase 72 Total Protein 6.4 Albumin 3.3 L Triglycerides 274 H Cholesterol 156.35 LDL Cholesterol Direct 86 VLDL Cholesterol 54.8 H HDL Cholesterol 38 L 10/14/18 07:41 WBC 5.8 RBC 3.54 L Hgb 11.9 L Hct 33.4 L MCV 95 MCH 33.6 H MCHC 35.5 RDW 14.6 H Plt Count 186 Seg Neutrophils % 58.5 Lymphocytes % 23.4 Monocytes % 9.4 Eosinophils % 7.3 H Basophils % 1.4 Absolute Neutrophils 3.4 Absolute Lymphocytes 1.3 Absolute Monocytes 0.5 Absolute Eosinophils 0.4 Absolute Basophils 0.1 Sodium Potassium Chloride Carbon Dioxide Anion Gap BUN Creatinine Est GFR ( Amer) Est GFR (Non-Af Amer) Glucose Calcium Magnesium Total Bilirubin AST ALT Alkaline Phosphatase Total Protein Albumin Triglycerides Cholesterol LDL Cholesterol Direct VLDL Cholesterol HDL Cholesterol Assessment & Plan - Diagnosis (1) DKA (diabetic ketoacidoses) Qualifiers: Diabetes mellitus type: type 2 Diabetes mellitus complication detail: without coma Qualified Code(s): E11.10 - Type 2 diabetes mellitus with ketoacidosis without coma Is this a current diagnosis for this admission?: Yes Plan: Resolved. Currently off Insulin infusion. (2) Diabetes mellitus type 2 in nonobese Is this a current diagnosis for this admission?: Yes Plan: Increase Lantus insulin to 490 units SC qhs. Maintain on IV fluid support and all other current medication management. (3) Hyperkalemia Is this a current diagnosis for this admission?: Yes Plan: Resolved with treatment of his DKA. (4) Hyponatremia Is this a current diagnosis for this admission?: Yes Plan: Resolved with treatment of his DKA. (5) HTN (hypertension) Qualifiers: Hypertension type: essential hypertension Qualified Code(s): I10 - Essential (primary) hypertension Is this a current diagnosis for this admission?: Yes (6) HLD (hyperlipidemia) Qualifiers: Hyperlipidemia type: unspecified Qualified Code(s): E78.5 - Hyperlipidemia , unspecified Is this a current diagnosis for this admission?: Yes (7) GERD (gastroesophageal reflux disease) Qualifiers: Esophagitis presence: without esophagitis Qualified Code(s): K21.9 - Gastro -esophageal reflux disease without esophagitis Is this a current diagnosis for this admission?: Yes (8) Primary prostate cancer Is this a current diagnosis for this admission?: Yes (9) Hypomagnesemia Is this a current diagnosis for this admission?: Yes Plan: Probably related to electrolyte derangement from DKA. Patient will receive magnesium replacement therapy. - Time Time Spent with patient: 25-34 minutes Medications reviewed and adjusted accordingly: Yes Anticipated discharge: Home Within: Other - Inpatient Certification Based on my medical assessment, after consideration of the patient's comorbidities, presenting symptoms, or acuity I expect that the services needed warrant INPATIENT care.: Yes I certify that my determination is in accordance with my understanding of Medicare's requirements for reasonable and necessary INPATIENT services [42 CFR 412.3e].: Yes Medical Necessity: Need Close Monitoring Due to Risk of Patient Decompensation, Need For IV Fluids, Need For Continuous Telemetry Monitoring, Risk of Complication if Not Cared For in Hospital Post Hospital Care: D/C Can Slider Documentation - Plan Summary Plan Summary: Continue current medication management as per outlined care plan above.
[2018-10-14] MEDS: INSULIN GLARGINE,HUM.REC.ANLOG 300 UNIT/3 ML INSULN.PEN SUBCUT SCH (22:19)
[2018-10-14] MEDS: ATORVASTATIN CALCIUM 40 MG TABLET PO SCH (22:21)
[2018-10-15] MEDS: INSULIN LISPRO 100 UNIT/ML 3 ML VIAL SUBCUT PRN ×4 (08:31→21:19)
[2018-10-15] MEDS: LANSOPRAZOLE 30 MG TAB.RAP.DR PO SCH (08:31)
--- NOTE | 2018-10-15 08:58 | PDOC PROGRESS REPORT ---
Subjective Progress Note for:: 10/15/18 Subjective:: Remarkably patient left his assigned hospital room for local [employer] store during early hours of today. He was eventually returned to the hospital by EMS team. He appeared lucid but tangential in his responses. He admitted to leaving and narrated stopping at [facility] before arriving at [employer] for coffee and egg sandwich. He denied any chest pain or difficulty with breathing. No nausea, vomiting or abdominal pain. He expressed concern about his antiandrogen therapy for prostate cancer treatment. Reason For Visit: HYPERKALEMIA Physical Exam Vital Signs: Temp Pulse Resp BP Pulse Ox 98.0 F 67 16 156/71 H 100 10/15/18 03:58 10/15/18 03:58 10/15/18 03:58 10/15/18 03:58 10/15/18 03:58 Intake & Output 10/14/18 10/15/18 10/16/18 06:59 06:59 06:59 Intake Total 2625 Balance 2625 Weight 68.8 kg 71.6 kg Physical Exam: General appearance: PRESENT: no acute distress, well-developed, well-nourished Head exam: PRESENT: atraumatic, normocephalic Eye exam: PRESENT: conjunctiva pink, EOMI, PERRLA. ABSENT: scleral icterus Ear exam: PRESENT: normal external ear exam Mouth exam: PRESENT: moist Cardiovascular exam: PRESENT: RRR. ABSENT: diastolic murmur, rubs, systolic murmur Vascular exam: PRESENT: normal capillary refill. ABSENT: pallor GI/Abdominal exam: PRESENT: normal bowel sounds, soft. ABSENT: distended, guarding, mass, organomegaly, rebound, tenderness Extremities exam: ABSENT: pedal edema Musculoskeletal exam: PRESENT: ambulatory Neurological exam: PRESENT: alert, awake, oriented to person, oriented to place , oriented to time, oriented to situation, CN II-XII grossly intact. ABSENT: motor sensory deficit Psychiatric exam: PRESENT: appropriate affect, normal mood. ABSENT: homicidal ideation, suicidal ideation Skin exam: PRESENT: dry, intact, warm. ABSENT: cyanosis, rash Results Laboratory Results: 10/14/18 07:41 10/14/18 05:35 Assessment & Plan - Diagnosis (1) DKA (diabetic ketoacidoses) Qualifiers: Diabetes mellitus type: type 2 Diabetes mellitus complication detail: without coma Qualified Code(s): E11.10 - Type 2 diabetes mellitus with ketoacidosis without coma Is this a current diagnosis for this admission?: Yes (2) Diabetes mellitus type 2 in nonobese Is this a current diagnosis for this admission?: Yes (3) Hyperkalemia Is this a current diagnosis for this admission?: Yes (4) Hyponatremia Is this a current diagnosis for this admission?: Yes (5) HTN (hypertension) Qualifiers: Hypertension type: essential hypertension Qualified Code(s): I10 - Essential (primary) hypertension Is this a current diagnosis for this admission?: Yes (6) HLD (hyperlipidemia) Qualifiers: Hyperlipidemia type: unspecified Qualified Code(s): E78.5 - Hyperlipidemia , unspecified Is this a current diagnosis for this admission?: Yes (7) GERD (gastroesophageal reflux disease) Qualifiers: Esophagitis presence: without esophagitis Qualified Code(s): K21.9 - Gastro -esophageal reflux disease without esophagitis Is this a current diagnosis for this admission?: Yes (8) Primary prostate cancer Is this a current diagnosis for this admission?: Yes (9) Hypomagnesemia Is this a current diagnosis for this admission?: Yes (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 Restart on IV fluid support and sliding scale Humalog insulin therapy. Start on [place] therapy. I will review his record regarding his ongoing prostate cancer therapy and monitor for any neurologic symptoms. - Time Time Spent with patient: 25-34 minutes Medications reviewed and adjusted accordingly: Yes Anticipated discharge: Home Within: Other - Inpatient Certification Based on my medical assessment, after consideration of the patient's comorbidities, presenting symptoms, or acuity I expect that the services needed warrant INPATIENT care.: Yes I certify that my determination is in accordance with my understanding of Medicare's requirements for reasonable and necessary INPATIENT services [42 CFR 412.3e].: Yes Medical Necessity: Need Close Monitoring Due to Risk of Patient Decompensation, Need For IV Fluids, Need For Continuous Telemetry Monitoring, Risk of Complication if Not Cared For in Hospital Post Hospital Care: D/C Cabinet Mounter Documentation - Plan Summary Plan Summary: See attending physician orders as per outlined care plan.
[2018-10-15] MEDS: NORMAL SALINE 1000 ML 1,000 ML IV PRN ×2 (09:01→18:46)
[2018-10-15] MEDS: AMLODIPINE BESYLATE 5 MG TABLET PO SCH (09:14)
[2018-10-15] MEDS: BICALUTAMIDE 50 MG TABLET PO SCH (09:14)
[2018-10-15] MEDS: MAGNESIUM OXIDE 400 MG TABLET PO SCH (09:14)
[2018-10-15] MEDS: METOPROLOL TARTRATE 25 MG TABLET PO SCH ×2 (09:14→21:19)
[2018-10-15] MEDS: ASPIRIN 81 MG TABLET, ENT COATED PO SCH (09:14)
[2018-10-15] MEDS: LISINOPRIL 10 MG TABLET PO SCH (09:15)
[2018-10-15] MEDS: OMEGA-3 ACID ETHYL ESTERS 1 GM CAPSULE PO SCH (09:15)
[2018-10-15] MEDS: ENOXAPARIN SODIUM INJ 40 MG/0.4 ML DISP.SYRIN SUBCUT SCH (09:17)
[2018-10-15 09:45] LABS: URINE AMPHETAMINES SCREEN NEGATIVE; URINE BARBITURATES SCREEN NEGATIVE; URINE BENZODIAZEPINES SCREEN NEGATIVE; URINE COCAINE SCREEN NEGATIVE; URINE MARIJUANA (THC) SCREEN NEGATIVE; URINE METHADONE SCREEN NEGATIVE; URINE PHENCYCLIDINE SCREEN NEGATIVE
[2018-10-15] MEDS ORDERED: POLYETHYLENE GLYCOL 3350 POWDER 17 GM/1 PACKET PO PRN (10:32)
[2018-10-15] MEDS: ATORVASTATIN CALCIUM 40 MG TABLET PO SCH (21:19)
[2018-10-15] MEDS: INSULIN GLARGINE,HUM.REC.ANLOG 300 UNIT/3 ML INSULN.PEN SUBCUT SCH (21:20)
[2018-10-16] MEDS: LANSOPRAZOLE 30 MG TAB.RAP.DR PO SCH (05:22)
[2018-10-16] MEDS: NORMAL SALINE 1000 ML 1,000 ML IV PRN ×2 (05:23→15:37)
[2018-10-16] MEDS: AMLODIPINE BESYLATE 5 MG TABLET PO SCH (09:11)
[2018-10-16] MEDS: METOPROLOL TARTRATE 25 MG TABLET PO SCH (09:11)
[2018-10-16] MEDS: ASPIRIN 81 MG TABLET, ENT COATED PO SCH (09:11)
[2018-10-16] MEDS: ENOXAPARIN SODIUM INJ 40 MG/0.4 ML DISP.SYRIN SUBCUT SCH (09:11)
[2018-10-16] MEDS: LISINOPRIL 10 MG TABLET PO SCH (09:11)
[2018-10-16] MEDS: MAGNESIUM OXIDE 400 MG TABLET PO SCH (09:11)
[2018-10-16] MEDS: OMEGA-3 ACID ETHYL ESTERS 1 GM CAPSULE PO SCH (09:11)
[2018-10-16] MEDS: BICALUTAMIDE 50 MG TABLET PO SCH (09:29)
[2018-10-16] MEDS: INSULIN LISPRO 100 UNIT/ML 3 ML VIAL SUBCUT PRN ×2 (12:16→17:38)
--- NOTE | 2018-10-16 18:15 | PDOC DISCHARGE SUMMARY ---
General - Admit/Disc Date/PCP Admission Date/Primary Care Provider: 10/13/18 12:32 DIMA NOLA Discharge Date: 10/16/18 - Discharge Diagnosis (1) DKA (diabetic ketoacidoses) Is this a current diagnosis for this admission?: Yes (2) Diabetes mellitus type 2 in nonobese Is this a current diagnosis for this admission?: Yes (3) Hyperkalemia Is this a current diagnosis for this admission?: Yes (4) Hyponatremia Is this a current diagnosis for this admission?: Yes (5) HTN (hypertension) Is this a current diagnosis for this admission?: Yes (6) HLD (hyperlipidemia) Is this a current diagnosis for this admission?: Yes (7) GERD (gastroesophageal reflux disease) Is this a current diagnosis for this admission?: Yes (8) Primary prostate cancer Is this a current diagnosis for this admission?: Yes (9) Hypomagnesemia Is this a current diagnosis for this admission?: Yes (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 Patient has been fully lucid so far today. I discussed case with spouse and she is agreeable to monitor patient at home for any delirium symptoms. Spouse denied any episode of PTSD or confusional state at home. - Additional Information Resuscitation Status: Full Code Home Medications: Amlodipine Besylate [Norvasc 5 mg Tablet] 5 mg PO DAILY 10/13/18 Aspirin [Ecotrin 81 mg EC Tablet] 81 mg PO DAILY 10/13/18 Atorvastatin Calcium [Lipitor 40 mg Tablet] 40 mg PO QHS 10/13/18 Bicalutamide [Casodex 50 Mg Tablet] 50 mg PO DAILY 10/13/18 Insulin Glargine,Hum.rec.anlog [Lantus Insulin Inj 300 Unit/3 ml Pen] 30 unit SUBCUT QHS 10/13/18 Ketoconazole [Nizoral 2% Shampoo 120 Ml Bottle] 1 applic TP ASDIR PRN 10/13/18 Lisinopril [Prinivil] 20 mg PO DAILY 10/13/18 Metoprolol Tartrate [Lopressor 25 mg Tablet] 25 mg PO Q12 10/13/18 [place]-3 Acid Ethyl Esters [Lovaza 1 gm Capsule] 1 gm PO DAILY 10/13/18 Prevnar 13 0.5 ml IM .RECEIVED 09/03/18 10/13/18 Sitagliptin Phos/Metformin HCl [Janumet Xr 50-1,000 mg Tablet] 1 each PO BID 01/26 History of Present Illness Patient complains of: Elevated blood glucose History of Present Illness: TOÑO FUENTES is a 78 year old male patient known to my practice who's blood glucose was elevated at over 700 mg/dL and attempt to contact him was unsuccessful since 10/10/18. His spouse eventually called me this morning upon reviewing message on her telephone and reported that his accuchek machine was reading high. He was subsequently directed to the Ed for further evaluation and management. His initial evaluation in the Ed revealed blood glucose of 762 mg/ dL. He was stated on IV fluid and insulin infusion therapy. Patient reported noncompliance with his insulin administration at home due to forgetfulness in recent time, particularly since his last dose of chemotherapy. He denied any fever or chills. No nausea, vomiting or diarrhea. he denied any genitourinary symptoms to suggest ongoing infection. No headache or dizziness. His morbidities include hypertension Diabetes mellitus type 2, Hyperlipidemia, GERD , Microcytic anemia and recently diagnosed prostate cancer s/p radiation therapy and currently on Bicalutamide. He was advised admission for further evaluation and management for diabetic ketoacidosis without coma. Hospital Course Hospital Course: Patient was managed with IV fluid support, Insulin infusion and eventually transition to SC insulin administration. His Hemoglobin A1c was reported at 13.4 % on 10/14/18. His hyperglycemia did improved but due to continue elevation above optimal level his Lantus insulin was increased to 40 Units SC qhs. His Janumet XR mg po bid was on hold. He will be discharge home today and follow up in the office. He will restart Janumet XR mg at 1 tablet po daily. Physical Exam Vital Signs: Temp Pulse Resp BP Pulse Ox 97.6 F 58 L 14 130/57 H 100 10/16/18 15:53 10/16/18 15:53 10/16/18 15:53 10/16/18 15:53 10/16/18 15:53 Intake & Output 10/15/18 10/16/18 10/17/18 06:59 06:59 06:59 Intake Total 2625 6765 1355 Balance 2625 2689 1355 Weight 71.6 kg 72.3 kg Physical Exam: General appearance: PRESENT: no acute distress, well-developed, well-nourished Head exam: PRESENT: atraumatic, normocephalic Eye exam: PRESENT: conjunctiva pink, EOMI, PERRLA. ABSENT: scleral icterus Ear exam: PRESENT: normal external ear exam Mouth exam: PRESENT: moist Cardiovascular exam: PRESENT: RRR. ABSENT: diastolic murmur, rubs, systolic murmur Vascular exam: PRESENT: normal capillary refill. ABSENT: pallor GI/Abdominal exam: PRESENT: normal bowel sounds, soft. ABSENT: distended, guarding, mass, organomegaly, rebound, tenderness Extremities exam: ABSENT: pedal edema Musculoskeletal exam: PRESENT: ambulatory Neurological exam: PRESENT: alert, awake, oriented to person, oriented to place , oriented to time, oriented to situation, CN II-XII grossly intact. ABSENT: motor sensory deficit Psychiatric exam: PRESENT: appropriate affect, normal mood. ABSENT: homicidal ideation, suicidal ideation Skin exam: PRESENT: dry, intact, warm. ABSENT: cyanosis, rash Results Laboratory Results: 10/14/18 07:41 10/14/18 05:35 Qualifiers - * PATIENT BEING DISCHARGED WITH ANY OF THE FOLLOWING DIAGNOSIS: No Plan Discharge Plan: Discharge home today. Follow up in the office as instructed upon discharge.
[2018-10-16 18:20] VITALS: BP 158/67
== END 2018-10-16 18:50 | disposition home or self-care (01) | DRG 638 ==
LOC: ER 09:32 → EH 12:32 → 3W 18:49
PROVIDERS: ADMIT Internal Medicine Geriatric Medicine; ATTEND Internal Medicine Geriatric Medicine
DX: E10.10 Type 1 diabetes mellitus with ketoacidosis without coma (principal); E87.1 Hypo-osmolality and hyponatremia; E87.5 Hyperkalemia; E83.42 Hypomagnesemia; I10 Essential (primary) hypertension; C61 Malignant neoplasm of prostate; K21.9 Gastro-esophageal reflux disease without esophagitis; D50.9 Iron deficiency anemia, unspecified; R41.0 Disorientation, unspecified; E78.5 Hyperlipidemia, unspecified; Z96.653 Presence of artificial knee joint, bilateral; Z79.84 Long term (current) use of oral hypoglycemic drugs; Z79.82 Long term (current) use of aspirin; Z79.4 Long term (current) use of insulin; Z79.899 Other long term (current) drug therapy; Z91.14 Patient's other noncompliance with medication regimen
CPT/HCPCS: 36415; 80048; 80053; 80061; 80307; 81001; 82803; 82962; 83036; 83735; 85025; 96360; 99291; J1650; J1815; J3475; J3490; J7030

== ENCOUNTER 2018-12-09 07:42 | Day surgery (SDC) | payer MEDICARE, OTHER ==
--- NOTE | 2018-11-19 12:22 | EKG REPORT ---
SEVERITY:- NORMAL ECG - SINUS RHYTHM : Confirmed by: Marquise Schaefer MD 19-Nov-2018 12:21:45
[2018-11-19 12:32] LABS: HEMATOCRIT 28.4 % (37.9-51.0); HEMOGLOBIN 9.9 g/dL (13.5-17.0); MEAN CORPUSCULAR HEMOGLOBIN 33.8 pg (27.0-33.4); MEAN CORPUSCULAR HGB CONC 34.8 g/dL (32.0-36.0); MEAN CORPUSCULAR VOLUME 97 fl (80-97); PLATELET COUNT 204 10^3/uL (150-450); RED BLOOD COUNT 2.92 10^6/uL (4.35-5.55); RED CELL DISTRIBUTION WIDTH 14.5 % (11.5-14.0); WHITE BLOOD COUNT 5.9 10^3/uL (4.0-10.5)
[2018-11-19 12:36] LABS: INTERNATIONAL RATION (INR) 1.01; PROTHROMBIN TIME 13.8 SEC (11.4-15.4)
[2018-11-19 12:56] LABS: ANION GAP 10 (5-19); BLOOD UREA NITROGEN 32 mg/dL (7-20); CALCIUM 9.8 mg/dL (8.4-10.2); CARBON DIOXIDE 23 mmol/L (22-30); CHLORIDE 106 mmol/L (98-107); GLUCOSE 93 mg/dL (75-110); POTASSIUM 5.9 mmol/L (3.6-5.0)
[~2018-12-09 07:42] MED LIST: CEFAZOLIN 1 GM/D5W RTU 1 GM/50 ML RTUPB IV ONE; CEFAZOLIN 1 GM/D5W RTU 1 GM/50 ML RTUPB IV PRN; LACTATED RINGERS 1000 ML IV PRN; LIDOCAINE 0.5% INJ-PF (5 MG/ML) 50 ML SDV SUBCUT PRN; LIDOCAINE 1%/EPINEPHRINE INJ 20 ML VIAL ONE; POVIDONE-IODINE 5% OPH PREP SOLN 30 ML ONE; SODIUM BICARBONATE 8.4% INJ 50 MEQ/50 ML DISP.SYRIN ONE
[2018-12-09] MEDS ORDERED: FENTANYL CITRATE INJ/PF 100 MCG/2 ML AMPUL ONE (10:13)
[2018-12-09] MEDS ORDERED: MIDAZOLAM 2 MG/2 ML INJ ONE (10:14)
[2018-12-09] MEDS ORDERED: PROPOFOL INJ 200 MG/20 ML VIAL IV ONE (10:14)
[2018-12-09] MEDS ORDERED: EPHEDRINE SULFATE INJ 50 MG/1 ML AMPULE ONE (11:19)
--- NOTE | 2018-12-09 12:59 | Operative Report ---
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 OPERATION: Excision of squamous cell carcinoma of the ear with frozen section margin control and reconstruction with a helical rim advancement flap reconstruction SURGEON: PRAKASH ROMERO ANESTHESIA: LMAC TISSUE REMOVED OR ALTERED: Squamous cell carcinoma of the ear COMPLICATIONS: None ESTIMATED BLOOD LOSS: Minimal PROCEDURE: Patient seen and was marked prior to being brought into the operating room. Patient was brought into the operating room and placed on the operating room table in a area position. Patient was then prepped with a Betadine scrub and Betadine solution and draped in a sterile and aseptic manner. The area was then marked. 12 O'clock was marked towards the apex of the ear 3 O'clock was marked towards the tragus 6:00 was marked towards the earlobe 9:00 was marked towards postauricular sulcus The area was then anesthetized with 1% lidocaine with epinephrine and bicarbonate for its anesthetic and hemostatic effects. The area was then excised and marked at 12:00. The specimen was sent for frozen section. The results came back that the deep and lateral margins were free. We had considered a primary closure but this would go against the natural relaxed skin tension lines. A primary closure would be too tight and would have increased chance of dehiscence. This will leave more of a scar so we decided to use a helical rim advancement flap reconstruction which would camouflage the scar better and take tension off of the closure so that would be less chances of complications. We initially started the resection after we had outlined the area. Cancer had progressed to now compress what appeared some of the posterior ear. As we dissected the area that was outlined it was noted that on the posterior surface of the ear there was carcinoma that was down onto the cartilage. It was already carcinoma on the helical rim which appeared to be attached. Once we saw this we decided to resect full-thickness anterior skin cartilage and posterior skin in order to eradicate the cancer. It was a rather substantial defect that remained. In order to maintain vertical height of the ear it was decided to go ahead with a helical rim advancement flap as we noted above. This would leave us the maximal amount of vertical height with the reconstruction. Then we went ahead and outlined the flap and anesthetized it. We then incised the flap and developed a flap maintaining the subdermal plexus. Then we undermined 360 to allow for plate like scarring and minimize trap door deformity. Throughout the case hemostasis was achieved with the bipolar. We then sutured the flap into its new position using 4-0 chromic with figure -of-eight stitches to reconstruct the cartilage. Skin was closed with a simple interrupted and horizontal mattress sutures using 4-0 chromic and 4-0 Prolene sutures. We then applied tincture benzoin and Steri-Strips followed by a light pressure dressing. Patient was then reversed from anesthesia and taken to the [facility] for recovery. The patient tolerated well. There were no complications. Lesion size was over 2 cm please see pathology for actual size. Portions of this note may be dictated using [employer] voice recognition software. Occasional variations and spelling and vocabulary could be possible and are unintentional. Additionally, there is a chance that some errors may not be caught or corrected. Please notify the author of any discrepancies noted or if any statements are unclear. Subjective: No complaints Objective: Vital signs stable afebrile No bleeding Dressing intact Assessment and plan: Doing well. Elevate the operative site. Resume medications. Take antibiotics for 1 day Follow-up Full instructions were given to the patient and family and they understand Portions of this note may be dictated using [employer] voice recognition software. Occasional variations and spelling and vocabulary could be possible and are unintentional. Additionally, there is a chance that some errors may not be caught or corrected. Please notify the offer of any discrepancies noted or if any statements are unclear.
--- NOTE | 2018-12-09 13:00 | Discharge Summary ---
Discharge Summary (SDC) - Discharge Final Diagnosis: Squamous cell carcinoma of the ear Date of Surgery: 12/09/18 Condition: Good Treatment or Instructions: Leave the top dressing on for 2 days, then removed. Leave the steri-strip tapes on for 5 days, then removal. Then cleaning wound with peroxide and apply Neosporin/bacitracin 3 times per day. Antibiotics for 1 day, then discontinue. Elevate operative area to decrease swelling. Do not strain, or lift heavy objects. Call for excessive bleeding, increased temperature of 101, uncontrolled pain, or excessive nausea or vomiting. You may reach Dr. Vizcaino through his office at [phone]. In the event of an emergency after hours, then contact Dr. Vizcaino through [facility]. Return to the office for a postop check on . The time will be scheduled by the nursing staff of [facility] prior to discharge. Please give the patient a copy of their labs and EKG so they can bring this to their PMD. Thank you Portions of this note may be dictated using [employer] voice recognition software. Occasional variations and spelling and vocabulary could be possible and are unintentional. Additionally, there is a chance that some errors may not be caught or corrected. Please notify the offer of any discrepancies noted or if any statements are unclear. Referrals: DIMA VACA MD [Primary Care Provider] - Discharge Diet: As Tolerated Discharge Activity: No Lifting/Push/Pulling Report the Following to Your Physician Immediately: Unusual Bleeding - Keep head elevated. Do not sleep on the ear that was reconstructed.
[2018-12-09 14:36] VITALS: BP 132/98
== END 2018-12-09 14:30 | disposition home or self-care (01) ==
LOC: OROUT 07:42
PROVIDERS: ATTEND Plastic Surgery
DX: C44.292 Other specified malignant neoplasm of skin of right ear and external auricular canal (principal); K21.9 Gastro-esophageal reflux disease without esophagitis; E11.9 Type 2 diabetes mellitus without complications; I11.0 Hypertensive heart disease with heart failure; D64.9 Anemia, unspecified; Z87.891 Personal history of nicotine dependence; Z95.1 Presence of aortocoronary bypass graft; Z85.46 Personal history of malignant neoplasm of prostate; Z79.899 Other long term (current) drug therapy; Z79.82 Long term (current) use of aspirin; Z79.4 Long term (current) use of insulin; Z79.84 Long term (current) use of oral hypoglycemic drugs; Z96.653 Presence of artificial knee joint, bilateral; Z79.01 Long term (current) use of anticoagulants; Z01.818 Encounter for other preprocedural examination
CPT/HCPCS: 93005; 36415 ×2; 82962; 84132; 85027; 85610; 85730; 80048; 88305 ×2; 88331 ×2; 93010; 14060; J2250; J0690; J3490 ×4; J3010; J2704; 120

== ENCOUNTER 2019-01-27 08:28 | Day surgery (SDC) | payer MEDICARE, OTHER ==
[~2019-01-27 08:28] MED LIST changes: -LACTATED RINGERS 1000 ML IV PRN; -LIDOCAINE 0.5% INJ-PF (5 MG/ML) 50 ML SDV SUBCUT PRN
[2019-01-27] MEDS ORDERED: METOPROLOL TARTRATE 25 MG TABLET ONE (09:04)
[2019-01-27] MEDS ORDERED: MIDAZOLAM 2 MG/2 ML INJ ONE (10:12)
[2019-01-27] MEDS ORDERED: FENTANYL CITRATE INJ/PF 100 MCG/2 ML AMPUL ONE (10:12)
[2019-01-27] MEDS ORDERED: ONDANSETRON HCL INJ/PF 4 MG/2 ML SDV ONE (10:12)
[2019-01-27] MEDS ORDERED: PROPOFOL INJ 200 MG/20 ML VIAL IV ONE (10:13)
[2019-01-27] MEDS ORDERED: MEPERIDINE HCL/PF INJ 25 MG/1 ML DISP.SYRIN IV PRN (11:02)
[2019-01-27] MEDS ORDERED: DIPHENHYDRAMINE HCL 50 MG/ML VIAL IV PRN (11:02)
[2019-01-27] MEDS ORDERED: FENTANYL CITRATE INJ/PF 100 MCG/2 ML AMPUL IV PRN ×2 (11:02)
[2019-01-27] MEDS ORDERED: PROMETHAZINE HCL INJ 25 MG/1 ML VIAL IV PRN (11:02)
--- NOTE | 2019-01-27 12:06 | Operative Report ---
Operative Report DATE OF SURGERY: 01/27/19 PREOPERATIVE DIAGNOSIS: Squamous cell carcinoma from the right anterior scalp POSTOPERATIVE DIAGNOSIS: Same OPERATION: Excision of squamous cell carcinoma from the right anterior scalp with frozen section margin control and reconstruction with a boomerang sliding advancement flap SURGEON: PRAKASH ROMERO ANESTHESIA: LMAC TISSUE REMOVED OR ALTERED: Squamous cell carcinoma COMPLICATIONS: None PROCEDURE: Patient seen and was marked prior to being brought into the operating room. Patient was brought into the operating room and placed on the operating room table in a supine position. Patient was then prepped with a Betadine scrub and Betadine solution and draped in a sterile and aseptic manner. The area was then marked. 12 O'clock was marked towards the apex of the scalp 3 O'clock was marked towards the midline of the scalp 6:00 was marked towards the forehead 9:00 was marked towards the lateral aspect of the scalp The area was then anesthetized with 1% lidocaine with epinephrine and bicarbonate for its anesthetic and hemostatic effects. The area was then excised and marked at 12:00. The specimen was sent for frozen section. The results came back that the deep and lateral margins were free. We had considered a primary closure but this would go against the natural relaxed skin tension lines. A primary closure would be too tight and would have increased chance of dehiscence. This will leave more of a scar so we decided to use a boomerang sliding advancement flap reconstruction which would camouflage the scar better and take tension off of the closure so that would be less chances of complications. It was felt that the boomerang sliding advancement flap would allow us to take some of the skin from the posterior scalp and advanced this up to the anterior scalp so we would not change his partline Or his hairline. This flap would also allow us to take the skin from a less tension area and bring it up to a more tension area so that we can still end up with a tension- free reconstruction. Then we went ahead and outlined the flap and anesthetized it. We then incised the flap and developed a flap maintaining the subdermal plexus. Then we undermined 360 to allow for plate like scarring and minimize trap door deformity. Throughout the case hemostasis was achieved with the bipolar. We then sutured the flap into its new position using 4-0 Vicryl for the subcutaneous and deep dermis. Skin was closed with a interrupted stitch using 4-0 Prolene with knots being tied on the outside. We then applied Dermabond followed by a light pressure dressing. Patient was then reversed from anesthesia and taken to the [facility] for recovery. The patient tolerated well. There were no complications. Lesion size was approximately 1.4 cm please see pathology for actual size. Portions of this note may be dictated using [employer] voice recognition software. Occasional variations and spelling and vocabulary could be possible and are unintentional. Additionally, there is a chance that some errors may not be caught or corrected. Please notify the author of any discrepancies noted or if any statements are unclear. Subjective: No complaints Objective: Vital signs stable afebrile No bleeding Dressing intact Assessment and plan: Doing well. Elevate the operative site. Resume medications. Take antibiotics for 1 day Follow-up Full instructions were given to the patient and family and they understand Portions of this note may be dictated using [employer] voice recognition software. Occasional variations and spelling and vocabulary could be possible and are unintentional. Additionally, there is a chance that some errors may not be caught or corrected. Please notify the offer of any discrepancies noted or if any statements are unclear.
--- NOTE | 2019-01-27 12:08 | Discharge Summary ---
Discharge Summary (SDC) - Discharge Final Diagnosis: Squamous cell carcinoma of the right anterior scalp Date of Surgery: 01/27/19 Condition: Good Treatment or Instructions: Antibiotics for 1 day, then discontinue. Elevate operative area to decrease swelling. Do not strain, or lift heavy objects. Call for excessive bleeding, increased temperature of 101, uncontrolled pain, or excessive nausea or vomiting. You may reach Dr. Vizcaino through his office at [phone]. In the event of an emergency after hours, then contact Dr. Vizcaino through [facility]. Return to the office for a postop check on . The time will be scheduled by the nursing staff of [facility] prior to discharge. Please give the patient a copy of their labs and EKG so they can bring this to their PMD. Thank you Portions of this note may be dictated using [employer] voice recognition software. Occasional variations and spelling and vocabulary could be possible and are unintentional. Additionally, there is a chance that some errors may not be caught or corrected. Please notify the offer of any discrepancies noted or if any statements are unclear. Referrals: DIMA VACA MD [Primary Care Provider] - Discharge Diet: As Tolerated Discharge Activity: No Lifting/Push/Pulling Report the Following to Your Physician Immediately: Unusual Bleeding - Keep head elevated. No bending or straining.
[2019-01-27] MEDS ORDERED: EPHEDRINE SULFATE INJ 50 MG/1 ML AMPULE ONE (12:13)
[2019-01-27 13:50] VITALS: BP 107/57
== END 2019-01-27 13:35 | disposition home or self-care (01) ==
LOC: OROUT 08:28
PROVIDERS: ATTEND Plastic Surgery
DX: C44.42 Squamous cell carcinoma of skin of scalp and neck (principal); D64.9 Anemia, unspecified; I11.9 Hypertensive heart disease without heart failure; E11.9 Type 2 diabetes mellitus without complications; Z79.82 Long term (current) use of aspirin; Z79.899 Other long term (current) drug therapy; Z79.4 Long term (current) use of insulin; Z79.84 Long term (current) use of oral hypoglycemic drugs; Z85.46 Personal history of malignant neoplasm of prostate; Z85.828 Personal history of other malignant neoplasm of skin
CPT/HCPCS: 82962; 88305 ×2; 88331 ×2; 14020; J2250; J0690; J3490 ×4; J3010; J2405; J2704; A9270; 300

== ENCOUNTER 2019-09-01 05:17 | Day surgery (SDC) | payer MEDICARE, OTHER ==
[2019-08-21 11:02] LABS: HEMATOCRIT 34.7 % (37.9-51.0); HEMOGLOBIN 11.9 g/dL (13.5-17.0); MEAN CORPUSCULAR HEMOGLOBIN 31.8 pg (27.0-33.4); MEAN CORPUSCULAR HGB CONC 34.3 g/dL (32.0-36.0); MEAN CORPUSCULAR VOLUME 93 fl (80-97); PLATELET COUNT 197 10^3/uL (150-450); RED BLOOD COUNT 3.74 10^6/uL (4.35-5.55); RED CELL DISTRIBUTION WIDTH 14.2 % (11.5-14.0); WHITE BLOOD COUNT 5.5 10^3/uL (4.0-10.5)
[2019-08-21 11:10] LABS: INTERNATIONAL RATION (INR) 1.05; PROTHROMBIN TIME 13.7 SEC (11.4-15.4)
[2019-08-21 11:11] LABS: PARTIAL THROMBOPLASTIN TIME 28.1 SEC (23.5-35.8)
[2019-08-21 11:33] LABS: ANION GAP 11 (5-19); BLOOD UREA NITROGEN 19 mg/dL (7-20); CALCIUM 9.1 mg/dL (8.4-10.2); CARBON DIOXIDE 26 mmol/L (22-30); CHLORIDE 102 mmol/L (98-107); GLUCOSE 130 mg/dL (75-110)
--- NOTE | 2019-08-21 21:25 | EKG REPORT ---
SEVERITY:- ABNORMAL ECG - SINUS RHYTHM FIRST DEGREE AV BLOCK : Confirmed by: Marquise Schaefer MD 21-Aug-2019 21:24:59
[~2019-09-01 05:17] MED LIST changes: -CEFAZOLIN 1 GM/D5W RTU 1 GM/50 ML RTUPB IV ONE; -CEFAZOLIN 1 GM/D5W RTU 1 GM/50 ML RTUPB IV PRN; +CEFAZOLIN SODIUM 1 GM in DEXTROSE 5%-WATER 50 ML IV PRN; +LACTATED RINGERS 1000 ML IV PRN; +LIDOCAINE 0.5% INJ-PF (5 MG/ML) 50 ML SDV SUBCUT PRN; -LIDOCAINE 1%/EPINEPHRINE INJ 20 ML VIAL ONE; -POVIDONE-IODINE 5% OPH PREP SOLN 30 ML ONE; -SODIUM BICARBONATE 8.4% INJ 50 MEQ/50 ML DISP.SYRIN ONE
[2019-09-01] MEDS ORDERED: FENTANYL CITRATE INJ/PF 100 MCG/2 ML AMPUL ONE (06:50)
[2019-09-01] MEDS ORDERED: MIDAZOLAM 2 MG/2 ML INJ ONE (06:50)
[2019-09-01] MEDS ORDERED: PROPOFOL INJ 200 MG/20 ML VIAL IV ONE (06:50)
[2019-09-01] MEDS ORDERED: LIDOCAINE 0.5% INJ-PF (5 MG/ML) 50 ML SDV ONE (06:50)
[2019-09-01] MEDS ORDERED: SODIUM BICARBONATE 4.2% INJ (2.5 MEQ/5 ML) VIAL ONE (07:18)
[2019-09-01] MEDS ORDERED: LIDOCAINE 1%/EPINEPHRINE INJ 20 ML VIAL ONE (07:18)
[2019-09-01] MEDS ORDERED: POVIDONE-IODINE 5% OPH PREP SOLN 30 ML ONE (07:18)
[2019-09-01] MEDS ORDERED: DIPHENHYDRAMINE HCL 50 MG/ML VIAL IV PRN (08:07)
[2019-09-01] MEDS ORDERED: MORPHINE SULFATE 10 MG/ML INJ IV PRN (08:07)
[2019-09-01] MEDS ORDERED: OXYCODONE-ACETAMINOPHEN 5-325 MG TABLET PO PRN ×2 (08:07)
[2019-09-01] MEDS ORDERED: FENTANYL CITRATE INJ/PF 100 MCG/2 ML AMPUL IV PRN ×3 (08:07)
[2019-09-01] MEDS ORDERED: MEPERIDINE HCL/PF INJ 25 MG/1 ML DISP.SYRIN IV PRN (08:07)
[2019-09-01] MEDS ORDERED: PROMETHAZINE HCL INJ 25 MG/1 ML VIAL IV PRN ×2 (08:07)
--- NOTE | 2019-09-01 08:55 | Operative Report ---
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 Patient was brought into the operating room and placed on the operating room table in a [supine] position. Patient was then prepped with a Betadine scrub and Betadine solution and draped in a sterile and aseptic manner. The area was then marked. 12 O'clock was marked towards the lateral canthus 3 O'clock was marked towards the cheek 6:00 was marked towards the scalp 9:00 was marked towards the forehead The area was then anesthetized with 1% lidocaine with epinephrine and bicarbonate for its anesthetic and hemostatic effects. The area was then excised and marked at 12:00. The specimen was sent for frozen section. The results came back that the deep and lateral margins were free. We had considered a primary closure but this would go against the natural relaxed skin tension lines. A primary closure would be too tight and would have increased chance of dehiscence. This will leave more of a scar so we decided to use a [O to S] flap reconstruction which would camouflage the scar better and take tension off of the closure so that would be less chances of complications. We decided to go with this flap because this would allow us to direct the reconstructive lines along the lines of the lateral forehead and pentecostal and then curve it in such a way that it would also fall along the lines of the inferior sideburn. Again this would give us the best camouflage and fall into his natural lines and will give us the least amount of tension on the lateral canthus and minimize any distortion of the brow or the sideburn. Then we went ahead and outlined the flap and anesthetized it. We then incised the flap and developed a flap maintaining the subdermal plexus. Then we undermined 360 to allow for plate like scarring and minimize trap door deformity. Throughout the case hemostasis was achieved with the bipolar. We then sutured the flap into its new position using [ 4-0 Vicryl] for the subcutaneous and deep dermis. Skin was closed with a [running subcuticular suture] stitch using [4-0 PDS] with knots being tied on the outside. And [4-0 PDS] suture was used for support and placed in the central area of the incision. We then applied Dermabond followed by a light pressure dressing. Patient was then reversed from anesthesia and taken to the [facility] for recovery. The patient tolerated well. There were no complications. Lesion size was approximately 1.9 cm please see pathology for actual size. Portions of this note may be dictated using [employer] voice recognition software. Occasional variations and spelling and vocabulary could be possible and are unintentional. Additionally, there is a chance that some errors may not be caught or corrected. Please notify the author of any discrepancies noted or if any statements are unclear. Subjective: No complaints Objective: Vital signs stable afebrile No bleeding Dressing intact Assessment and plan: Doing well. Elevate the operative site. Resume medications. Take antibiotics for 1 day Follow-up Full instructions were given to the patient and family and they understand Portions of this note may be dictated using [employer] voice recognition software. Occasional variations and spelling and vocabulary could be possible and are unintentional. Additionally, there is a chance that some errors may not be caught or corrected. Please notify the offer of any discrepancies noted or if any statements are unclear.
--- NOTE | 2019-09-01 08:57 | Discharge Summary ---
Discharge Summary (SDC) - Discharge Final Diagnosis: Squamous cell carcinoma of the right anterior sideburn Date of Surgery: 09/01/19 Condition: Good Treatment or Instructions: Antibiotics for 1 day, then discontinue. Elevate operative area to decrease swelling. Do not strain, or lift heavy objects. Call for excessive bleeding, increased temperature of 101, uncontrolled pain, or excessive nausea or vomiting. You may reach Dr. Vizcaino through his office at [phone]. In the event of an emergency after hours, then contact Dr. Vizcaino through [facility]. Return to the office for a postop check on . The time will be scheduled by the nursing staff of [facility] prior to discharge. Please give the patient a copy of their labs and EKG so they can bring this to their PMD. Thank you Portions of this note may be dictated using [employer] voice recognition software. Occasional variations and spelling and vocabulary could be possible and are unintentional. Additionally, there is a chance that some errors may not be caught or corrected. Please notify the offer of any discrepancies noted or if any statements are unclear. Referrals: DIMA VACA MD [Primary Care Provider] - Discharge Diet: As Tolerated Discharge Activity: No Lifting/Push/Pulling Report the Following to Your Physician Immediately: Unusual Bleeding - Keep head elevated. No bending or straining.
[2019-09-01 15:36] VITALS: BP 155/71
== END 2019-09-01 11:00 | disposition home or self-care (01) ==
LOC: OROUT 05:17
PROVIDERS: ATTEND Plastic Surgery
DX: C44.329 Squamous cell carcinoma of skin of other parts of face (principal); I11.9 Hypertensive heart disease without heart failure; E11.9 Type 2 diabetes mellitus without complications; L57.0 Actinic keratosis; L57.8 Other skin changes due to chronic exposure to nonionizing radiation; Z79.899 Other long term (current) drug therapy; Z79.01 Long term (current) use of anticoagulants; Z79.82 Long term (current) use of aspirin; Z79.4 Long term (current) use of insulin; Z79.84 Long term (current) use of oral hypoglycemic drugs; Z87.891 Personal history of nicotine dependence; Z85.46 Personal history of malignant neoplasm of prostate
CPT/HCPCS: 93005; 36415; 82962; 85027; 85610; 85730; 80048; 88305 ×2; 88331 ×2; 93010; 00300; 14040; J2250; J0690; J3490 ×4; J7060; J2704; 300; J3010

== ENCOUNTER 2019-09-03 08:48 | Day surgery (SDC) | payer MEDICARE, OTHER ==
[~2019-09-03 08:48] MED LIST changes: +BUPIVACAINE HCL 0.75% INJ/PF (7.5 MG/1 ML) 10 ML SDV OS PRN; -CEFAZOLIN SODIUM 1 GM in DEXTROSE 5%-WATER 50 ML IV PRN; +CHONDR SU A NA/HYALUR INTRAOC KIT (SURGICARE) ONE; +DORZOLAMIDE HCL 2%/TIMOLOL MALEAT 0.5% OPH SOLN 10 ML OS PRN; +EPINEPHRINE INJ/PF 1 MG/1 ML AMPULE ONE; +KETOROLAC TROMETHAMINE 0.45% 4 DROP/0.4 ML DROPERETTE OS PRN; -LACTATED RINGERS 1000 ML IV PRN; -LIDOCAINE 0.5% INJ-PF (5 MG/ML) 50 ML SDV SUBCUT PRN; +LIDOCAINE 1% INJ-PF (10 MG/ML) 30 ML SDV ONE; +LIDOCAINE 4% INJ/PF (40 MG/ML) 5 ML AMPUL OS PRN
[2019-09-03] MEDS ORDERED: ONDANSETRON HCL INJ/PF 4 MG/2 ML SDV ONE (09:20)
[2019-09-03] MEDS ORDERED: FENTANYL CITRATE INJ/PF 100 MCG/2 ML AMPUL ONE (09:21)
[2019-09-03] MEDS ORDERED: MIDAZOLAM 2 MG/2 ML INJ ONE (09:21)
[2019-09-03] MEDS: BESIFLOXACIN HCL 0.6% OPH SUSP 5 ML BOTTLE OS PRN ×3 (10:00→10:56)
[2019-09-03] MEDS: TETRACAINE HCL 0.5% OPH SOLN 4 ML OS PRN ×3 (10:00→10:27)
[2019-09-03] MEDS: TROPICAMIDE 1% OPH SOLN 15 ML OS PRN ×3 (10:00→10:21)
[2019-09-03] MEDS: CYCLOPENTOLATE 0.2%/PHENYLEPHRINE 1% OPH SOLN 2 ML OS PRN ×3 (10:00→10:21)
--- NOTE | 2019-09-03 18:57 | Operative Report ---
Operative Report-[facility] Operative Report: DATE OF SURGERY: 09/03/2019 PREOPERATIVE DIAGNOSIS: CATARACT, LEFT EYE. POSTOPERATIVE DIAGNOSIS: CATARACT, LEFT EYE. PROCEDURE PERFORMED: PHACOEMULSIFICATION WITH POSTERIOR CHAMBER INTRAOCULAR LENS, LEFT EYE. Intraocular Lens Model : [id number] 20.0 Total Phaco Time: 1.85 CDE SURGEON: MARY JAMES MD ANESTHESIA: TOPICAL WITH MAC. INDICATIONS FOR SURGERY: Difficulty with night driving PROCEDURE: The patient was brought to the Operating Room and placed in a seated position. a lid speculum was placed in the eye. the 0.180, and 270 degree axis of the cornea was marked with a toric marker. the patien was place in a reclining position. Following tetracaine drops, topical anesthesia was administered. This consisted of instrument wipe pledgets soaked in a solution of 4% Xylocaine mixed with 0.75% Marcaine in a 1:2 ratio. A 2 x 1 cm pledget was placed in the superior fornix. A 1 x 1 cm pledget was placed in the inferior fornix. The eye was patched shut for 5 minutes. The patch was removed. The eye was sterilely prepped and draped in the usual manner. Lid speculum was placed in the eye. The pledgets were removed. 4-0 black silk sutures were placed around the superior and the inferior rectus muscles to be used as traction. A conjunctival peritomy was made at the 10 o'clock position. Hemostasis was obtained with bipolar cautery. A posterior limbal groove was created using a crescent knife and dissected anteriorly towards the cornea. A sharp point blade was used to create a paracentesis site at the 2 o'clock position. 0.2 cc non preserved Lidocaine was injected into the anterior chamber. A 2.4 mm keratome was used to enter the anterior chamber through the groove. Viscoelastic was injected into the anteriorchamber. An anterior capsulotomy was performed using Utrata forceps in acapsulorrhexis fashion. Hydrodissection and hydrodelineation were performed. Phacoemulsification was performed in [id number] technique. Following this, the I/A unit was used to remove residual cortex. Viscoelastic was injected into the capsular bag. The Intraocular lens was placed in the capsular bag. The 178 degree axis of the eye was marked using a toric marker and the previously marked sites as reference. The lens was centered at this axis. The I/A unit was used to remove residual viscoelastic. The wound was seen to be watertight under high and low pressure, and no sutures were placed. The intraocular lens was well centered. The pressure was adjusted in the eye to normal pressure. The 4-0 black silk sutures and lid speculum were removed. The eye was shielded after Besivance and Cosopt drops were placed. The patient tolerated the procedure well and was sent to the Recovery Room in good condition.
== END 2019-09-03 11:45 | disposition home or self-care (01) ==
LOC: SC 08:48
PROVIDERS: ATTEND Ophthalmology
DX: H25.813 Combined forms of age-related cataract, bilateral (principal); H35.3130 Nonexudative age-related macular degeneration, bilateral, stage unspecified; H40.022 Open angle with borderline findings, high risk, left eye; E11.9 Type 2 diabetes mellitus without complications; Z87.891 Personal history of nicotine dependence; Z85.46 Personal history of malignant neoplasm of prostate; Z85.828 Personal history of other malignant neoplasm of skin; Z79.4 Long term (current) use of insulin; I10 Essential (primary) hypertension
CPT/HCPCS: 66984; 82962; 00142; J2250; J3490 ×5; A9270; J0171; J2405; 142; J3010; V2787

== ENCOUNTER 2019-09-29 10:14 | Day surgery (SDC) | payer MEDICARE, OTHER ==
[~2019-09-29 10:14] MED LIST changes: +BUPIVACAINE HCL 0.75% INJ/PF (7.5 MG/1 ML) 10 ML SDV OD PRN; -BUPIVACAINE HCL 0.75% INJ/PF (7.5 MG/1 ML) 10 ML SDV OS PRN; +DORZOLAMIDE HCL 2%/TIMOLOL MALEAT 0.5% OPH SOLN 10 ML OD PRN; -DORZOLAMIDE HCL 2%/TIMOLOL MALEAT 0.5% OPH SOLN 10 ML OS PRN; +KETOROLAC TROMETHAMINE 0.45% 4 DROP/0.4 ML DROPERETTE OD PRN; -KETOROLAC TROMETHAMINE 0.45% 4 DROP/0.4 ML DROPERETTE OS PRN; +LIDOCAINE 4% INJ/PF (40 MG/ML) 5 ML AMPUL OD PRN; -LIDOCAINE 4% INJ/PF (40 MG/ML) 5 ML AMPUL OS PRN
[2019-09-29] MEDS: BESIFLOXACIN HCL 0.6% OPH SUSP 5 ML BOTTLE OD PRN ×3 (11:33→12:42)
[2019-09-29] MEDS: TROPICAMIDE 1% OPH SOLN 15 ML OD PRN ×3 (11:33→11:55)
[2019-09-29] MEDS: TETRACAINE HCL 0.5% OPH SOLN 4 ML OD PRN ×3 (11:33→12:05)
[2019-09-29] MEDS: CYCLOPENTOLATE 0.2%/PHENYLEPHRINE 1% OPH SOLN 2 ML OD PRN ×3 (11:33→11:55)
[2019-09-29] MEDS ORDERED: MIDAZOLAM 2 MG/2 ML INJ ONE (11:45)
--- NOTE | 2019-09-29 16:37 | Operative Report ---
Operative Report-[facility] Operative Report: DATE OF SURGERY: 08/29/2019 PREOPERATIVE DIAGNOSIS: CATARACT, RIGHT EYE. POSTOPERATIVE DIAGNOSIS: CATARACT,RIGHT EYE. PROCEDURE PERFORMED: PHACOEMULSIFICATION WITH TORIC POSTERIOR CHAMBER INTRAOCULAR LENS, RIGHT EYE. Intraocular Lens Model : MX 60 T200 20.5 Total Phaco Time: 7.17 CDE SURGEON: MARY JAMES MD ANESTHESIA: TOPICAL WITH MAC. INDICATIONS FOR SURGERY: Difficulty with night driving PROCEDURE: The patient was brought to the Operating Room and placed in a seated position. a lid speculum was placed in the eye. the 0.180, and 270 degree axis of the cornea was marked with a toric marker. the patien was place in a reclining position. Following tetracaine drops, topical anesthesia was administered. This consisted of instrument wipe pledgets soaked in a solution of 4% Xylocaine mixed with 0.75% Marcaine in a 1:2 ratio. A 2 x 1 cm pledget was placed in the superior fornix. A 1 x 1 cm pledget was placed in the inferior fornix. The eye was patched shut for 5 minutes. The patch was removed. The eye was sterilely prepped and draped in the usual manner. Lid speculum was placed in the eye. The pledgets were removed. 4-0 black silk sutures were placed around the superior and the inferior rectus muscles to be used as traction. A conjunctival peritomy was made at the 10 o'clock position. Hemostasis was obtained with bipolar cautery. A posterior limbal groove was created using a crescent knife and dissected anteriorly towards the cornea. A sharp point blade was used to create a paracentesis site at the 2 o'clock position. 0.2 cc non preserved Lidocaine was injected into the anterior chamber. A 2.4 mm keratome was used to enter the anterior chamber through the groove. Viscoelastic was injected into the anteriorchamber. An anterior capsulotomy was performed using Utrata forceps in acapsulorrhexis fashion. Hydrodissection and hydrodelineation were performed. Phacoemulsification was performed in [id number] technique. Following this, the I/A unit was used to remove residual cortex. Viscoelastic was injected into the capsular bag. The Intraocular lens was placed in the capsular bag. The 178 degree axis of the eye was marked using a toric marker and the previously marked sites as reference. The lens was centered at this axis. The I/A unit was used to remove residual viscoelastic. The wound was seen to be watertight under high and low pressure, and no sutures were placed. The intraocular lens was well centered. The pressure was adjusted in the eye to normal pressure. The 4-0 black silk sutures and lid speculum were removed. The eye was shielded after Besivance and Cosopt drops were placed. The patient tolerated the procedure well and was sent to the Recovery Room in good condition.
== END 2019-09-29 13:30 ==
LOC: SC 10:14
PROVIDERS: ATTEND Ophthalmology
DX: H25.811 Combined forms of age-related cataract, right eye (principal); Z96.1 Presence of intraocular lens; I10 Essential (primary) hypertension; E11.9 Type 2 diabetes mellitus without complications; Z79.84 Long term (current) use of oral hypoglycemic drugs; Z79.4 Long term (current) use of insulin; Z79.899 Other long term (current) drug therapy
CPT/HCPCS: 66984; 82962; V2787; J2250; J3490 ×5; A9270; J0171